=== PATIENT | female | born 1950 | race Caucasian/White ===

== ENCOUNTER → 2017-02-28 | Outpatient (CLI) | payer MEDICARE ==
--- NOTE | 2017-02-28 14:16 | MM ---
Reason for exam: screening (asymptomatic). Baseline mammogram. History: Patient is postmenopausal. Physical Findings: Nurse did not find any significant physical abnormalities on exam. MG 3D Screening Mammo W/Cad Bilateral CC and MLO view(s) were taken. There are scattered fibroglandular densities. Right intramammary lymph node with a notch is noted in posterior upper outer quadrant. These results were verbally communicated with the patient and result sheet given to the patient on 02/28/17. ASSESSMENT: Benign, BI-RAD 2 RECOMMENDATION: Routine screening mammogram of both breasts in 1 year.
== END | disposition home or self-care (01) ==
LOC: RADMAMWWP 13:30
PROVIDERS: ATTEND Family Medicine
DX: Z12.31 Encounter for screening mammogram for malignant neoplasm of breast (principal)
CPT/HCPCS: 77063; 77067

== ENCOUNTER 2018-05-30 08:10 | Inpatient (IN) | payer MEDICARE ==
[2018-05-30] MEDS ORDERED: SODIUM CHLORIDE 0.9% 1,000 ML IV STA (08:23)
[2018-05-30] MEDS ORDERED: IPRATROPIUM-ALBUTEROL 3 ML NEB INHALATION STA (08:23)
[2018-05-30 08:38] LABS: Basophils # (A) 0.1 k/uL (0-0.2); Basophils % (A) 0 %; Eosinophils # (A) 1.1 k/uL (0-0.7); Eosinophils % (A) 5 %; HCT 37.7 % (34.0-46.0); HGB 12.1 gm/dL (11.4-16.0); Lymphocytes % (A) 5 %; MCH 29.7 pg (25.0-35.0); MCHC 32.1 g/dL (31.0-37.0); MCV 92.6 fL (80.0-100.0); Mean Platelet Volume 6.8; Monocytes # (A) 0.4 k/uL (0-1.0); Monocytes % (A) 2 %; Neutrophils # (A) 18.4 k/uL (1.3-7.7); Neutrophils % (A) 88 %; Platelet Count 374 k/uL (150-450); RBC 4.07 m/uL (3.80-5.40); RDW 12.3 % (11.5-15.5)
[2018-05-30] MEDS ORDERED: cefTRIAXone IN SWFI 1,000 MG/10 ML SYRINGE IVP STA (08:42)
--- NOTE | 2018-05-30 08:44 | ED ---
Chest Pain HPI <John Lopez - Last Filed: 05/30/18 09:18> - General Source: patient, family, RN notes reviewed, old records reviewed Mode of arrival: wheelchair Limitations: no limitations <Meghan Suarez - Last Filed: 05/30/18 10:43> - General Chief Complaint: Chest Pain Stated Complaint: Chest pain Time Seen by Provider: 05/30/18 08:17 - History of Present Illness Initial Comments: Patient is a 68-year-old female, history of smoking presents emergency department today with significant chest pain and shortness of breath. Patient reports that she has had low-grade fever yesterday. Patient reports she's had increased coughing. She complains today of significant chest pain and pain radi ating towards her abdomen. She states it felt like she had have a bowel movement today. Patient has a history of throat cancer. She is not currently on any radiation or chemotherapy treatments. Patient reports that she was walking in her yard to get some help and went to her neighbor's. Her neighbor dropped her off and carried her into the emergency department. (Meghan Suarez) - Related Data Home Medications Medication Instructions Recorded Confirmed HYDROcodone/APAP 10-325MG [Canby 1 tab PO Q8H 05/30/18 05/30/18 10-325] Meloxicam [Mobic] 15 mg PO DAILY 05/30/18 05/30/18 QUEtiapine FUMARATE [SEROquel] 25 mg PO HS 05/30/18 05/30/18 Allergies Allergy/AdvReac Type Severity Reaction Status Date / Time Penicillins Allergy Rash/Hives Verified 05/30/18 08:14 Review of Systems ROS Other: All systems not noted in ROS Statement are negative. <John Lopez - Last Filed: 05/30/18 09:18> ROS Other: All systems not noted in ROS Statement are negative. <Meghan Suarez - Last Filed: 05/30/18 10:43> ROS Statement: Those systems with pertinent positive or pertinent negative responses have been documented in the HPI. EKG Findings - EKG Comments: EKG Findings:: EKG performed at 823, sinus rhythm nonspecific ST and milk. Abnormal EKG. Ventricular rate of 91 bpm. IA interval is 134 ms. QRS duration is 72 ms. QT QTc is 332/408 ms. <Meghan Suarez - Last Filed: 05/30/18 10:43> Past Medical History Past Medical History: COPD Additional Past Medical History / Comment(s): throat cancer History of Any Multi-Drug Resistant Organisms: None Reported Past Surgical History: Hysterectomy Past Psychological History: Depression Smoking Status: Current every day smoker Past Alcohol Use History: None Reported Past Drug Use History: None Reported <Meghan Suarez - Last Filed: 05/30/18 10:43> General Exam Limitations: no limitations, altered mental status General appearance: alert, in no apparent distress, anxious Head exam: Present: atraumatic, normocephalic, normal inspection Eye exam: Present: normal appearance, PERRL, EOMI. Absent: scleral icterus, conjunctival injection, periorbital swelling ENT exam: Present: normal exam, mucous membranes moist Neck exam: Present: normal inspection. Absent: tenderness, meningismus, lymphadenopathy Respiratory exam: Present: wheezes, decreased breath sounds. Absent: normal lung sounds bilaterally, respiratory distress, rales, rhonchi, stridor Cardiovascular Exam: Present: regular rate, normal rhythm, normal heart sounds. Absent: systolic murmur, diastolic murmur, rubs, gallop, clicks GI/Abdominal exam: Present: soft, tenderness (Diffuse abdominal tenderness.), normal bowel sounds. Absent: distended, guarding, rebound, rigid Extremities exam: Present: normal inspection, full ROM, normal capillary refill. Absent: tenderness, pedal edema, joint swelling, calf tenderness Back exam: Present: normal inspection Neurological exam: Present: alert, oriented X3, CN II-XII intact Expanded Neurological exam: Present: other (Patient is alert and oriented to person place and time. She does have some confused conversation, states that the right or was there for her cancer diagnosis. This is not accurate.) Patient oriented to: Present: person, place, time Cranial nerves: EOM's Intact: Normal Sensory exam: Upper Extremity Light Touch: Normal, Lower Extremity Light Touch: Normal Motor strength exam: RUE: 5, LUE: 5, RLE: 5, LLE: 5 Eye Response: (4) open spontaneously Motor Response: (6) obeys commands Verbal Response: (4) confused conversation Nacho Total: 14 Psychiatric exam: Present: normal affect, normal mood, anxious Skin exam: Present: warm, dry, intact, normal color. Absent: rash <Meghan Suarez - Last Filed: 05/30/18 10:43> - General Exam Comments Initial Comments: This is a 68-year-old female. Patient is anxious, appears in significant distress. Writhing around in the bed. Somewhat confused conversation. (Meghan Suarez) Course <Meghan Suarez - Last Filed: 05/30/18 10:43> Vital Signs 05/30/18 05/30/18 05/30/18 08:11 08:28 08:36 Temperature 98.5 F Pulse Rate 99 84 84 Respiratory 22 Rate Blood Pressure 191/52 O2 Sat by Pulse 94 L Oximetry 05/30/18 05/30/18 09:16 10:08 Temperature Pulse Rate 87 93 Respiratory 16 16 Rate Blood Pressure 170/75 152/87 O2 Sat by Pulse 98 97 Oximetry - Reevaluation(s) Reevaluation #1: 05/30/18 09:41 Patient was evaluated continues to have symptoms diffuse conversation. Did not recognize her brother and state her brother is her son. Patient's brother admits the Patient is altered. (Meghan Suarez) Chest Pain MDM <John Lopez - Last Filed: 05/30/18 09:18> <Meghan Suarez - Last Filed: 05/30/18 10:43> - MDM IDejan, personally saw and examined the patient. I have reviewed and agree with the PA findings, including all diagnostic interpretations and treatment plans as written unless otherwise stated. I was present for the carbajal portions of any procedures performed and the inclusive time noted for any critical care statement. (John Lopez) Patient is a 68-year-old female presents emergency Department today with complaints of chest pain shortness of breath. She stated that she had pain starting in abdomen and radiating up towards The chest. She arrived to emergency department by her neighbor. She is confused conversation and is altered. History was obtained from patient's brother and [id number] report that she does have history of drug abuse and alcoholism. She is diagnosed with throat cancer but not currently on any chemo or radiation treatments. She arrived to emergency department wheezing and coughing. Patient started on oxygen and IV fluids were initiated blood cultures and cardiac workup obtained. Patient appeared in significant distress and writhing around the bed with confused conversation. Initially was concerned for possibility of dissection. CT thoracic and abdominal aorta was completed. CT report: CT shows no evidence of pulmonary embolus. After her medicine regularly at the distal thoracic and abdominal aorta with areas of ulceration. There is no evidence of dilation or dissection. Emphysema changes within the lungs. Mild cardiomegaly. There is mild consolidation at the left lung base either representing atelectasis or early consolidation. There is a 2.5 cm left adrenal mass. Minimal and comp acute diverticulosis of the sigmoid colon. Degenerative changes noted within the spine. Chest x-ray shows mild changes of congestive heart failure. With CT showing evidence of consolidation left lung base, is concerned for pneumonia and sepsis. The patient's white blood cell count is elevated at 21,000. Lactic acid is negative. She was initiated on Rocephin and Solu- Medrol. Patient was reevaluated again and brother was present. States that she is altered. CT of the brain will be completed at this time. CT brain with residual constrast from ct aorta shows no acute intracranial abnormality. Mild degenerative changes. Chronic right ethmoidal sinus mucosal disease. Patient's case discussed with Dr. Lopez we'll discuss the case with Dr. BUZZ Uriostegui. He agrees to accept admission but states to admit the Patient under Dr. Paredes. (Meghan Suarez) Critical Care Time Critical Care Time: Yes Total Critical Care Time: 35 <Meghan Suarez - Last Filed: 05/30/18 10:43> Disposition <John Lopez - Last Filed: 05/30/18 09:18> Is patient prescribed a controlled substance at d/c from ED?: No Time of Disposition: 09:48 <Meghan Suarez - Last Filed: 05/30/18 10:43> Clinical Impression: Sepsis, Pneumonia, Altered mental status, Transaminitis Disposition: ADMITTED IP TO THIS HOSP Condition: Stable Referrals: Johnson Vanegas MD [Primary Care Provider] - 1-2 days
[2018-05-30 08:46] LABS: ALT 131 U/L (9-52); AST 103 U/L (14-36); Albumin 4.4 g/dL (3.5-5.0); Alkaline Phosphatase 195 U/L (38-126); Anion Gap 9 mmol/L; Blood Urea Nitrogen 13 mg/dL (7-17); Calcium 9.8 mg/dL (8.4-10.2); Carbon Dioxide 22 mmol/L (22-30); Chloride 103 mmol/L (98-107); Glucose 127 mg/dL (74-99); Magnesium 1.8 mg/dL (1.6-2.3); Potassium 4.7 mmol/L (3.5-5.1); Sodium 134 mmol/L (137-145); Total Bilirubin 0.9 mg/dL (0.2-1.3)
[2018-05-30 08:59] LABS: INR 0.9 (<1.2); Partial Thromboplastin Time 22.1 sec (22.0-30.0); Prothrombin Time 9.5 sec (9.0-12.0)
[2018-05-30] MEDS ORDERED: methylPREDNISolone SOD SUCCI 125 MG/2 ML VIAL IV STA (09:14)
--- NOTE | 2018-05-30 09:19 | CT ---
EXAMINATION TYPE: CT angio thor/abd pel aorta DATE OF EXAM: 05/30/2018 COMPARISON: None. HISTORY: Chest pain CT DLP: 824.8 mGycm. Automated Exposure Control for Dose Reduction was Utilized. CONTRAST: CT scan of the thorax, abdomen and pelvis is performed without and with IV Contrast, patient injected with 100 mL of Isovue 370. FINDINGS: There is some scarring in the lung apices. There is emphysematous change with subpleural bl ebs present in the upper lobes bilaterally. There is some coarse interstitial fibrosis. There is some confluent airspace disease in the left lower lobe. This may represent atelectasis or ea rly consolidation. There is no significant axillary or internal mammary adenopathy. There is some shotty mediastinal and right hilar adenopathy. There is no evidence of pulmonary embolus. The aorta is normal in caliber. There is some atheromatous irregularity and a small, 4.7 mm ulcer in the posterior aspect of the descending thoracic aorta. There is no evidence of abdominal aortic aneur ysm. The celiac, SMA and LIOR vessels are patent. Both renal arteries are patent. Heart size is upper limits of normal. There is no pleural or pericardial fluid. There is atheromatous calcification of the coronary arteries. Within the abdomen, the liver, spleen and gallbladder appear unremarkable. The right adrenal gland is unremarkable. There is a 2.5 cm, irregularly enhancing left adrenal mass. Both kidneys demonstrate function and appear morphologically normal. The pancreas is unremarkable. There is no significant retroperitoneal, iliac or inguinal adenopathy. The bladder is unremarkable. The uterus and ovaries are not visualized. There are scattered diverticula within the sigmoid colon. There is no radiographic evidence of divert iculitis. The appendix is not visualized with certainty there is degenerative disc disease, facet art hropathy and hypertrophic spondylosis within the spine. IMPRESSION: 1. THERE IS NO EVIDENCE OF PULMONARY EMBOLUS. 2. ATHEROMATOUS IRREGULARITY OF THE DISTAL THORACIC AND ABDOMINAL AORTA WITH AREAS OF ULCERATION. THE RE IS NO EVIDENCE OF ANEURYSMAL DILATATION OR DISSECTION. 3. EMPHYSEMATOUS CHANGE WITHIN THE LUNGS. 4. MILD CARDIOMEGALY. 5. MILD CONSOLIDATION AT THE LEFT LUNG BASE EITHER REPRESENTING ATELECTASIS OR EARLY CONSOLIDATION. 6. 2.5 CM, LEFT ADRENAL MASS. 7. MINIMAL UNCOMPLICATED DIVERTICULOSIS OF THE SIGMOID COLON. 8. DEGENERATIVE CHANGES WITHIN THE SPINE.
--- NOTE | 2018-05-30 09:20 | XR ---
EXAMINATION TYPE: XR chest 2V DATE OF EXAM: 05/30/2018 HISTORY: Chest Pain. REFERENCE: Previous study dated 11/28/2015. FINDINGS: Heart is mildly enlarged. There is vascular congestion and mild edema. Pleural spaces are c lear. IMPRESSION: MILD CHANGES OF CONGESTIVE HEART FAILURE.
[2018-05-30] MEDS ORDERED: NALOXONE 0.4 MG/ML 1 ML VIAL IV PRN (09:51)
[2018-05-30] MEDS ORDERED: ACETAMINOPHEN TAB 325 MG TAB PO PRN (09:51)
[2018-05-30] MEDS ORDERED: ONDANSETRON 4 MG/2 ML VIAL IVP PRN (09:51)
[2018-05-30] MEDS ORDERED: Acetaminophen-Codeine 300-30mg TAB PO PRN (09:51)
[2018-05-30] MEDS ORDERED: PNEUMONIA PROTOCOL UTILIZED 1 EACH MISC PO PRN (09:54)
[2018-05-30 10:22] LABS: Appearance,Urine Clear (Clear); Bacteria,Urine Rare /hpf; Bilirubin,Urine Negative (Negative); Blood,Urine Negative (Negative); Color,Urine Light Yellow; Glucose,Urine (UA) Negative (Negative); Ketones,Urine Negative (Negative); Leukocyte Esterase,Urine Large (Negative); Mucus,Urine Rare /hpf; Nitrite,Urine Negative (Negative); Protein,Urine Negative (Negative); RBC,Urine 2 /hpf (0-5); Squamous Epithelial Cell,Urine 1 /hpf (0-4); Urobilinogen,Urine <2.0 mg/dL (<2.0); WBC,Urine 71 /hpf (0-5)
[2018-05-30 10:32] LABS: Amphetamine Screen,Urine Not Detected (NotDetected); Barbiturate Screen,Urine Not Detected (NotDetected); Benzodiazepines Screen,Urine Not Detected (NotDetected); Cocaine Screen,Urine Not Detected (NotDetected); Methadone Screen, Urine Not Detected (NotDetected); Opiate Screen,Urine Detected (NotDetected); Oxycodone Screen, Urine Not Detected (NotDetected); Phencyclidine Screen,Urine Not Detected (NotDetected); Tricyclic Antidepressant,Urine Not Detected (NotDetected); Urn Cannabinoid Scrn Not Detected (NotDetected)
[2018-05-30] MEDS: SODIUM CHLORIDE 0.9% 1,000 ML IV SCH ×2 (11:09→21:51)
[2018-05-30] MEDS: AZITHROMYCIN 500 MG TAB PO SCH (11:48)
--- NOTE | 2018-05-30 12:56 | CT ---
EXAMINATION TYPE: CT brain w con DATE OF EXAM: 05/30/2018 COMPARISON: None. HISTORY: Patient appears agitated and has difficulty following directions CT DLP: 1212.4 mGycm Automated exposure control for dose reduction was used. CONTRAST: CT scan of the head is performed with IV Contrast, patient injected with 100 given during aorta exam mL of Isovue 370. FINDINGS: Central structures are midline. There is no evidence of hydrocephalus. No acute focal lesion, mass ef fect or midline shift is seen. I do not see evidence of intracranial blood. There are mild changes of atrophy and chronic white matter ischemic change. There is no abnormal enhancement identified. There is mucoperiosteal thickening involving the right nasal cavity in the anterior ethmoidal air urmila ls on the right. The remainder the paranasal sinuses and mastoids are clear. The bony calvarium is in tact. IMPRESSION: 1. NO ACUTE INTRACRANIAL ABNORMALITY. 2. MILD DEGENERATIVE CHANGE. 3. CHRONIC RIGHT-SIDED ETHMOIDAL SINUS MUCOSAL DISEASE.
[2018-05-30] MEDS: MORPHINE SULFATE 4 MG/ML SYRINGE IV PRN ×2 (13:59→17:54)
--- NOTE | 2018-05-30 15:27 | HP ---
HISTORY AND PHYSICAL Yamilex Reyes is a 68-year-old female who presented to the ED at [facility] with some mental status changes. She apparently had been doing fair when she developed a low-grade fever. She also had been complaining of some chest pain that was starting in her left leg but going all the way up to her chest. She had a previous history of throat cancer and was somewhat confused. Subsequently her neighbor dropped her off and carried her into the emergency department. She is pleasantly confused at this time. She states that there may have been some medication change recently, but she is not clear what. PAST MEDICAL HISTORY: Positive for COPD, history of throat cancer, hysterectomy, depression. SOCIAL HISTORY: Patient is an everyday smoker. She does not drink alcohol excessively. ALLERGIES: PENICILLINS. MEDICATIONS: Her medications prior to admission were: 1. Seroquel. 2. Mobic. 3. Hydrocodone with acetaminophen. REVIEW OF SYSTEMS: Noncontributory. PHYSICAL EXAMINATION: Respiratory rate is 22, pulse rate 93, temperature 99, blood pressure 154/69, O2 saturation on 2 L by nasal cannula 96%. HEENT reveals pupils that are equal. She has some involuntary movement of her neck. Chest reveals scattered rhonchi bilaterally, prolonged exhalation. Cardiovascular system is in S1, S2. Abdomen is soft. There is no edema. CT of the head showed no acute bleed. LABORATORY DATA: White count is 21,000, hemoglobin 12, neutrophils 18,400, eosinophils 1100. Sodium is 134, potassium 4.7, chloride 103, bicarb 22, glucose 127. CT scan of the chest shows evidence of scarring in the lung apices with left lower lobe consolidative changes. IMPRESSION AT THIS TIME: 1. Left lower lobe pneumonia. 2. Metabolic encephalopathy. 3. Chronic obstructive pulmonary disease with asthma with acute exacerbation. Keep the patient on azithromycin and Rocephin. Have ID further evaluate the patient. Keep the patient on aerosolized steroids and add IV steroids if need be. Patient did receive 125 mg in the ED. Depending on how she does, we shall make further changes to her care. MMODL / IJN: [id number] /
--- NOTE | 2018-05-30 19:39 | CONS ---
CONSULTATION DATE OF SERVICE: 05/30/2018. REASON FOR CONSULTATION: Pneumonia and UTI. HISTORY OF PRESENT ILLNESS: The patient is a 68-year-old female who was brought into the ER with chief complaints of increasing shortness of breath and cough, also low-grade fever. Apparently, the patient symptoms have been going on for a few days before presenting to the hospital. The patient denies any headache or URI symptoms. The patient cough has mild to moderate intensity and there is occasional sputum. No hemoptysis. The patient denies any abdominal pain. No diarrhea. No suprapubic or flank pain. Patient with these symptoms, was evaluated by the ER physician. The patient did have a chest x-ray that was mild changes of congestive heart failure. The patient did have a CT of the thoracic aorta. We did treat possibly the left lower lobe pneumonia. The patient did have elevated white count 21,000 and UA was positive. The patient was started on Rocephin with Zithromax and admitted to the hospital. Infectious Disease was consulted for further recommendation regarding antibiotic therapy. REVIEW OF SYSTEMS: Positive points have been mentioned in HPI. Rest of the systems are negative. PAST MEDICAL HISTORY: COPD, history of throat cancer, depression. PAST SURGICAL HISTORY: Hysterectomy. SOCIAL HISTORY: The patient is currently an everyday smoker. No drinking or drug use. FAMILY HISTORY: No pertinent findings noticed. ALLERGIES: PENICILLIN. No history of anaphylaxis. MEDICATION: Medications include the patient is currently on Tylenol, DuoNeb, Zithromax, Pulmicort, Rocephin 1 g daily, Pepcid, heparin, Motrin, Narcan, Zofran and Protonix. PHYSICAL EXAMINATION: Blood pressure 154/88 with a pulse of 76, temperature 98.3. She is 94% on 2 L nasal cannula. General description is an elderly female up in the bed in no distress. No tachypnea or accessory muscles of respiration use. HEENT: Shows no pallor or scleral icterus. Oral mucosal membranes are dry. No pharyngeal erythema or thrush. NECK: Trachea central. No thyromegaly. Lungs: Unlabored breathing with decreased breath sounds in the bases. No wheeze. Heart S1, S2. Regular rate and rhythm. ABDOMEN: Soft. No tenderness. No guarding or rigidity. EXTREMITIES: No edema of the feet. SKIN examination: No rash or mass palpable. Neurologically: Patient is awake, alert, oriented times three. Mood and affect normal. LABS: Hemoglobin is 12.1, white count 21,000, BUN of 13, creatinine 0.78. Liver enzymes mildly elevated. Urine has been positive. DIAGNOSTIC IMPRESSION AND PLAN: Patient admitted to the hospital with difficulty breathing and some mental status changes likely multifactorial in this patient who does have positive left lower lobe pneumonia possibly community acquired, also a component of urinary tract infection. Likely enteric gram-negative pathogen. PLAN: 1. Will try to obtain sputum for Gram stain culture and sensitivity. 2. Rocephin 1 g daily that should provide wide coverage for both pneumonia as well as UTI. 3. We will follow up on the clinical condition and culture to further adjust medication if needed. Thank you for this consultation. We will follow this patient along with you. MMODL / IJN: [id number] /
[2018-05-30] MEDS: BUDESONIDE 0.5 MG/2 ML NEBU INHALATION SCH (21:03)
[2018-05-30] MEDS: HYDROcodone/APAP 10-325MG 1 EACH TAB PO PRN (21:47)
[2018-05-30] MEDS: NICOTINE 14MG/24HR PATCH TRANSDERM SCH (21:54)
[2018-05-30] MEDS: HEPARIN SODIUM,PORCINE 5,000 UNIT/ML 1 ML VIAL SQ SCH (21:54)
[2018-05-30] MEDS: FAMOTIDINE 20 MG/2 ML VIAL IV SCH (21:54)
[2018-05-31] MEDS: HYDROcodone/APAP 10-325MG 1 EACH TAB PO PRN ×4 (03:46→21:06)
[2018-05-31] MEDS: IPRATROPIUM-ALBUTEROL 3 ML NEB INHALATION PRN ×3 (04:37→12:48)
[2018-05-31] MEDS: IBUPROFEN 400 MG TAB PO PRN ×3 (06:45→20:27)
--- NOTE | 2018-05-31 06:59 | XR ---
EXAMINATION TYPE: XR chest 2V DATE OF EXAM: 05/31/2018 HISTORY: pneumonia. REFERENCE: Previous study dated 05/30/2018. FINDINGS: Lung volumes are prominent. The heart is not enlarged. There is vascular congestion and sub tle interstitial change. This has improved slightly. IMPRESSION: 1. COPD. 2. IMPROVING CHANGES OF CONGESTIVE HEART FAILURE.
[2018-05-31] MEDS: BUDESONIDE 0.5 MG/2 ML NEBU INHALATION SCH ×2 (08:09→18:59)
[2018-05-31] MEDS: AZITHROMYCIN 500 MG TAB PO SCH (08:29)
[2018-05-31] MEDS: NICOTINE 14MG/24HR PATCH TRANSDERM SCH (08:30)
[2018-05-31] MEDS: FAMOTIDINE 20 MG/2 ML VIAL IV SCH (08:30)
[2018-05-31] MEDS: HEPARIN SODIUM,PORCINE 5,000 UNIT/ML 1 ML VIAL SQ SCH ×2 (08:30→21:07)
[2018-05-31] MEDS ORDERED: PANTOPRAZOLE 40 MG/10 ML VIAL IV SCH (09:00)
[2018-05-31] MEDS: SODIUM CHLORIDE 0.9% 1,000 ML IV SCH ×2 (10:46→18:05)
[2018-05-31] MEDS: FAMOTIDINE 20 MG TAB PO SCH (21:06)
--- NOTE | 2018-05-31 21:57 | PN ---
PROGRESS NOTE DATE OF SERVICE: 05/31/2018. REASON FOR FOLLOW UP: Community acquired pneumonia and UTI. INTERVAL HISTORY: The patient is afebrile. The patient continues to have a cough bringing up some purulent sputum. No hemoptysis. No chest pain. No abdominal pain. No diarrhea. PHYSICAL EXAMINATION: Blood pressure 168/89 with a pulse of 78, temperature 98.9. She is 97% on room air. General description is an elderly female lying in bed in no distress. Respiratory system: Unlabored breathing with coarse breath sounds in the bases. No wheeze. Heart S1, S2. Regular rate and rhythm. Abdomen soft, no tenderness. LABS: No new labs have been obtained today. Blood cultures negative so far. DIAGNOSTIC IMPRESSION AND PLAN: Patient admitted to the hospital with difficulty breathing. The patient did have a cough bringing up sputum, likely related to the community-acquired pneumonia. Patient currently with a dose of Erythromycin that will continue. Sputum culture has been obtained. Those will be followed and continue supportive care. MMODL / IJN: [id number] /
--- NOTE | 2018-05-31 22:28 | PN ---
PROGRESS NOTE DATE OF SERVICE: 05/31/2018 She has been hemodynamically stable. She is more awake, alert, and more appropriate. On physical examination her blood pressure is 168/89, respiratory rate of 18, pulse rate 78, temperature 98.9, O2 saturation on room air is 97%. HEENT is unremarkable. Chest reveals occasional crackles. Cardiovascular system is S1, S2. Abdomen is soft. There is no edema. Chest x-ray shows improving changes of congestive heart failure. IMPRESSION: 1. Left lower lobe pneumonia. 2. Urinary tract infection. 3. Metabolic encephalopathy. 4. Congestive heart failure. Continue current medications including azithromycin and Rocephin, budesonide, subcu heparin. Fluid status seems optimal at this time. I would not aggressively diurese. Depending on how she does we should make further changes to her care. MMMARLEYL / SHASHANKN: [id number] /
[2018-06-01] MEDS: SODIUM CHLORIDE 0.9% 1,000 ML IV SCH ×3 (01:55→20:41)
[2018-06-01] MEDS: HYDROcodone/APAP 10-325MG 1 EACH TAB PO PRN ×5 (02:59→22:44)
[2018-06-01] MEDS: IBUPROFEN 400 MG TAB PO PRN ×2 (06:48→19:24)
[2018-06-01] MEDS: IPRATROPIUM-ALBUTEROL 3 ML NEB INHALATION PRN ×2 (07:36→11:14)
[2018-06-01] MEDS: BUDESONIDE 0.5 MG/2 ML NEBU INHALATION SCH ×2 (07:36→19:38)
[2018-06-01] MEDS: AZITHROMYCIN 500 MG TAB PO SCH (09:20)
[2018-06-01] MEDS: FAMOTIDINE 20 MG TAB PO SCH (09:20)
[2018-06-01] MEDS: NICOTINE 7MG/24HR PATCH TRANSDERM SCH (09:21)
[2018-06-01] MEDS: HEPARIN SODIUM,PORCINE 5,000 UNIT/ML 1 ML VIAL SQ SCH ×2 (09:21→20:41)
--- NOTE | 2018-06-01 09:40 | PN ---
PROGRESS NOTE Patient was seen on 06/01/2018. She has been hemodynamically stable. She is more awake, alert. She is coughing up phlegm at this time. On physical examination, blood pressure is 140/64, respiratory rate of 16, pulse rate is 60, temperature 98.6, O2 SAT on room air is 95%. HEENT is unremarkable. Chest reveals expiratory wheeze with scattered rhonchi. Cardiovascular system is S1, S2. Abdomen is soft. There is no pedal edema impression at this time is #1 pneumonia, aspiration type #2 metabolic encephalopathy. Recheck labs today. Increase activity level. Continue antibiotics. Follow ID recommendations. Depending on how she does, we should make further changes to her care. MMODL / IJN: [id number] /
[2018-06-01 10:05] LABS: Basophils % (A) 0 %; Eosinophils # (A) 0.4 k/uL (0-0.7); Eosinophils % (A) 3 %; HGB 10.6 gm/dL (11.4-16.0); Lymphocytes # (A) 1.7 k/uL (1.0-4.8); Lymphocytes % (A) 12 %; MCH 29.7 pg (25.0-35.0); MCHC 32.1 g/dL (31.0-37.0); MCV 92.7 fL (80.0-100.0); Mean Platelet Volume 7.1; Monocytes # (A) 0.5 k/uL (0-1.0); Monocytes % (A) 4 %; Neutrophils # (A) 11.2 k/uL (1.3-7.7); Neutrophils % (A) 80 %; Platelet Count 305 k/uL (150-450); RBC 3.56 m/uL (3.80-5.40); RDW 12.7 % (11.5-15.5)
[2018-06-01 10:14] LABS: Albumin 3.8 g/dL (3.5-5.0); Calcium 9.8 mg/dL (8.4-10.2); Potassium 4.2 mmol/L (3.5-5.1); Total Bilirubin 0.5 mg/dL (0.2-1.3); Total Protein 7.1 g/dL (6.3-8.2)
[2018-06-01] MEDS ORDERED: VANCOMYCIN IV PER PHARMACY 1 EACH MISC MISCELLANE PRN (14:36)
--- NOTE | 2018-06-01 16:38 | PN ---
PROGRESS NOTE DATE OF SERVICE: 06/01/2018 REASON FOR FOLLOWUP: Community-acquired pneumonia and UTI. INTERVAL HISTORY: The patient is currently afebrile. The patient is breathing comfortably. The patient denies having any chest pain. She continues to have some cough, bringing up some sputum. No nausea or vomiting. No abdominal pain or diarrhea. PHYSICAL EXAMINATION: Blood pressure 162/74 with a pulse of 80, temperature 98. She is 96% on room air. General description is an elderly female lying in bed in no distress. RESPIRATORY SYSTEM: Unlabored breathing with decreased intensity of breath sounds. No wheeze. HEART: S1, S2. Regular rate and rhythm. ABDOMEN: Soft. No tenderness. LABS: Hemoglobin 10.6, white count 14,000. BUN of 15, creatinine 0.86. Sputum with presumptive Staph aureus and gram-negative bacilli. DIAGNOSTIC IMPRESSION AND PLAN: Patient admitted to hospital with pneumonia, left lower lobe, and this patient's sputum is now showing Staphylococcus aureus and a gram-negative. We will go ahead and switch her antibiotic therapy to cefepime and vancomycin. Discontinue the Rocephin and Zithromax. Monitor her clinical course closely. Continue with supportive care. MMODL / IJN: [id number] /
[2018-06-01] MEDS: VANCOMYCIN 750 MG in SODIUM CHLORIDE 0.9% 250 ML IVPB SCH ×2 (16:41→22:44)
[2018-06-01] MEDS: CEFEPIME 2 GM in SODIUM CHLORIDE 0.9% 100 ML IVPB SCH (20:41)
[2018-06-02] MEDS: HYDROcodone/APAP 10-325MG 1 EACH TAB PO PRN ×3 (04:20→16:43)
[2018-06-02] MEDS: IPRATROPIUM-ALBUTEROL 3 ML NEB INHALATION PRN ×2 (07:32→11:12)
[2018-06-02] MEDS: BUDESONIDE 0.5 MG/2 ML NEBU INHALATION SCH ×2 (07:32→19:39)
[2018-06-02] MEDS: HEPARIN SODIUM,PORCINE 5,000 UNIT/ML 1 ML VIAL SQ SCH ×2 (08:45→21:09)
[2018-06-02] MEDS: NICOTINE 7MG/24HR PATCH TRANSDERM SCH (08:45)
[2018-06-02] MEDS: SODIUM CHLORIDE 0.9% 1,000 ML IV SCH ×2 (08:46→20:12)
[2018-06-02] MEDS: FAMOTIDINE 20 MG TAB PO SCH (10:30)
[2018-06-02] MEDS: CEFEPIME 2 GM in SODIUM CHLORIDE 0.9% 100 ML IVPB SCH ×2 (10:30→21:07)
[2018-06-02 10:55] LABS: Anion Gap 5 mmol/L; Blood Urea Nitrogen 17 mg/dL (7-17); Calcium 9.5 mg/dL (8.4-10.2); Carbon Dioxide 26 mmol/L (22-30); Chloride 106 mmol/L (98-107); Glucose 79 mg/dL (74-99); Potassium 4.6 mmol/L (3.5-5.1); Sodium 137 mmol/L (137-145)
--- NOTE | 2018-06-02 11:13 | CDI ---
Documentation Clarification Form Date: 06/02/2018 11:02:10 AM From: Alejandra Willett CCS, CCDS Admit Date: 05/30/2018 10:38:00 AM Patient Name: Yamilex Reyes Visit Number: [id number] Discharge Date: ATTENTION: The Clinical Documentation Specialists (CDI) and [facility] Coding Staff appreciate your assistance in clarifying documentation. Please respond to the clarification below the line at the bottom and electronically sign. The CDI & [facility] Coding staff will review the response and follow-up if needed. Please note: Queries are made part of the Legal Health Record. If you have any questions, please contact the author of this message via ITS. Dr. Prince Uriostegui: CHF is documented in the 05/31 progress note: "Congestive heart failure. ... " I would not aggressively diurese." History/Risk Factors: COPD, Current smoker. Throat CA Clinical Indicators: Presented with chest pain, SOB & cough. Diagnosed with Sepsis, Severe with metabolic encephalopathy, aspiration pneumonia, positive sputum cultures with MRSA & E Coli. VS: T 98.5, P 99 - 84, R 22 (SOB), BP 191/52, PO 94 RA (2Lnc) BNP: 805 Echocardiogram Results: n/a on current or on previous admission. Chest X Ray 05/30 Mild CHF. 05/31 CXR: COPD, Improving changes of CHF. Treatment: Albuterol INH, O2 2Lnc, IV fluid bolus, IV Rocephin, IV Solumedrol, IV Ms, IV Zofran, IV fluid rate 100, IV Pepcid, Heparin sq, Nicotine patch, IV Vancomycin, IV Cefepime. No aggressive diuresis per progress note. In your professional opinion, can you please clarify the acuity and type of CHF if known? Systolic Heart Failure: o Acute o Chronic o Acute on Chronic Diastolic Heart Failure: o Acute o Chronic o Acute on Chronic Systolic & Diastolic Heart Failure: o Acute o Chronic o Acute on Chronic Heart Failure Unable to Determine Other, please specify (Last Revision: May 2017) MTDD
[2018-06-02] MEDS: IPRATROPIUM-ALBUTEROL 3 ML NEB INHALATION SCH ×3 (12:57→19:40)
[2018-06-02] MEDS: IBUPROFEN 400 MG TAB PO PRN (13:32)
--- NOTE | 2018-06-02 14:20 | P.PN ---
Subjective Progress Note Date: 06/02/18 This is a 68-year-old female admitted with sepsis secondary to left lower lobe pneumonia, cultures growing MRSA and E. coli. Congested, wheezing, productive cough, yellow sputum. Sputum culture reporting E. coli, MRSA. Evaluated by infectious disease, antibiotics adjusted .Maintained on vancomycin and cefepime. Maintaining O2 sats in high 90s on room air. Afebrile. Evaluated by PT, subacute rehab recommended. Telemetry sinus bradycardia to sinus rhythm. Objective - Vital Signs Vital signs: Vital Signs Temp 98.8 F 06/02/18 03:39 Pulse 86 06/02/18 11:23 Resp 20 06/02/18 03:39 BP 145/82 06/02/18 03:39 Pulse Ox 98 06/02/18 03:39 Intake & Output 06/01/18 06/02/18 06/02/18 18:59 06:59 18:59 Intake Total 582 180 Output Total 700 Balance -118 180 Weight 48.4 kg Intake: Oral 582 180 Output: Urine 700 Other: # Voids 1 - Exam PHYSICAL EXAM: VITAL SIGNS: As above GENERAL: Lying in bed, no acute distress, weak appearing HEENT: Conjunctivae normal. eyes normal. NECK: No JVD. No thyroid enlargement. No LNs CARDIOVASCULAR: S1, S2 muffled. No murmur. RESPIRATION: Breath sounds diminished in the bases. Bilateral expiratory wheezing.No rhonchi or crackles. ABDOMEN: Soft, nontender. No guarding. no masses palpable. No ascites.Bowel sounds heard. LEGS: No edema. no swelling. PSYCHIATRY: Alert and oriented -3, mood and affect normal. NERVOUS SYSTEM: Cranial N 2-12 grossly normal. Moves all 4 limbs. Diffuse weakness No focal deficits. Skin: no ulcer no rash Joints: No active swelling. No inflammation. Lymphatic system. No LN neck axilla or groin. - Labs CBC & Chem 7: 06/01/18 09:38 06/02/18 10:19 Labs: Microbiology - Last 24 Hours (Table) 05/30/18 08:20 Blood Culture - Preliminary Blood No Growth after 72 hours 05/31/18 04:42 Gram Stain - Final Sputum Sputum Culture - Final Methicillin resist S. aureus Escherichia coli Assessment and Plan Assessment: -Left lower lobe community-acquired pneumonia, with MRSA,E-coli. -Possible acute UTI -COPD, possible acute exacerbation -Ongoing nicotine abuse -History of throat cancer -History of depression Plan: Continue on current medication regime ,monitoring and symptomatic treatment. Maintain IV antibiotics as per infectious disease. Nebulized bronchodilators scheduled in addition to prn. Social work consulted for potential subacute rehab. Further recommendations to follow. The impression and plan of care has been dictated as directed. : I performed a history and examination of this patient, discussed the same with the dictator. I agree with the dictator's note ,documented as a scribe. Any additional findings or plans will be noted.
[2018-06-02] MEDS: VANCOMYCIN 750 MG in SODIUM CHLORIDE 0.9% 250 ML IVPB SCH ×2 (15:28→22:58)
[2018-06-02] MEDS: MORPHINE SULFATE 4 MG/ML SYRINGE IV PRN (15:37)
--- NOTE | 2018-06-02 16:42 | PN ---
PROGRESS NOTE DATE OF SERVICE: 06/02/2018. REASON FOR FOLLOWUP: MRSA pneumonia. INTERVAL HISTORY: The patient is currently afebrile. The patient is breathing comfortably. The patient has been complaining of coughing, bilateral sputum production. No nausea, vomiting. No abdominal pain. No diarrhea. PHYSICAL EXAMINATION: Blood pressure 187/86, pulse of 71, temp is 97.2, she is 97% on room air. General description is an elderly female up in the bed in no distress. Respiratory system: Unlabored breathing with decreased breath sounds in the bases. Heart S1, S2. Regular rate and rhythm. ABDOMEN: Soft. No tenderness. LABS: Creatinine 0.75, [place] [address]. Sputum with MRSA and E coli. DIAGNOSTIC IMPRESSION AND PLAN: Patient admitted to the hospital with pneumonia and left lower lobe sputum not showing a E coli MRSA. The patient is currently covered with vancomycin, cefepime to continue. Repeat chest x-ray tomorrow. Continue supportive care. MMODL / IJN: [id number] /
[2018-06-03] MEDS: HYDROcodone/APAP 10-325MG 1 EACH TAB PO PRN ×4 (00:52→23:10)
[2018-06-03] MEDS: LORazepam 2 MG/ML INJ IV PRN (00:53)
[2018-06-03] MEDS: SODIUM CHLORIDE 0.9% 1,000 ML IV SCH ×2 (06:56→16:17)
[2018-06-03] MEDS: BUDESONIDE 0.5 MG/2 ML NEBU INHALATION SCH ×2 (08:12→20:06)
[2018-06-03] MEDS: IPRATROPIUM-ALBUTEROL 3 ML NEB INHALATION SCH ×4 (08:12→20:06)
[2018-06-03] MEDS: NICOTINE 7MG/24HR PATCH TRANSDERM SCH (09:39)
[2018-06-03] MEDS: FAMOTIDINE 20 MG TAB PO SCH (09:40)
[2018-06-03] MEDS: CEFEPIME 2 GM in SODIUM CHLORIDE 0.9% 100 ML IVPB SCH (09:40)
[2018-06-03 09:41] LABS: Basophils % (A) 1 %; Eosinophils # (A) 0.6 k/uL (0-0.7); Eosinophils % (A) 8 %; HCT 30.2 % (34.0-46.0); HGB 9.8 gm/dL (11.4-16.0); Lymphocytes # (A) 1.7 k/uL (1.0-4.8); Lymphocytes % (A) 21 %; MCH 30.4 pg (25.0-35.0); MCHC 32.5 g/dL (31.0-37.0); MCV 93.3 fL (80.0-100.0); Mean Platelet Volume 7.3; Monocytes # (A) 0.5 k/uL (0-1.0); Monocytes % (A) 6 %; Neutrophils % (A) 63 %; Platelet Count 345 k/uL (150-450); RBC 3.23 m/uL (3.80-5.40); RDW 12.6 % (11.5-15.5)
[2018-06-03] MEDS: HEPARIN SODIUM,PORCINE 5,000 UNIT/ML 1 ML VIAL SQ SCH ×2 (09:41→20:58)
[2018-06-03 09:43] LABS: Anion Gap 6 mmol/L; Blood Urea Nitrogen 15 mg/dL (7-17); Calcium 9.4 mg/dL (8.4-10.2); Carbon Dioxide 23 mmol/L (22-30); Chloride 108 mmol/L (98-107); Glucose 123 mg/dL (74-99); Potassium 4.4 mmol/L (3.5-5.1); Sodium 137 mmol/L (137-145)
[2018-06-03] MEDS ORDERED: VANCOMYCIN TROUGH DUE 1 EACH MISC MISCELLANE ONE (10:00)
[2018-06-03] MEDS: VANCOMYCIN 1,000 MG in SODIUM CHLORIDE 0.9% 250 ML IVPB SCH (12:32)
[2018-06-03] MEDS: IBUPROFEN 400 MG TAB PO PRN (15:00)
--- NOTE | 2018-06-03 15:47 | XR ---
EXAMINATION TYPE: XR chest 2V DATE OF EXAM: 06/03/2018 COMPARISON: 05/31/2018 INDICATION: Pneumonia TECHNIQUE: Frontal and lateral views of the chest are obtained. FINDINGS: The heart size is normal. The pulmonary vasculature is normal. There is some subtle increasing lung markings at the left lower lobe. Correlate for left lower lobe p neumonia.. IMPRESSION: 1. Clinical correlation recommended for developing left lower lobe pneumonia
[2018-06-03] MEDS: MORPHINE SULFATE 4 MG/ML SYRINGE IV PRN ×2 (16:27→20:58)
--- NOTE | 2018-06-03 17:49 | PN ---
PROGRESS NOTE DATE OF SERVICE: 06/03/2018. REASON FOR FOLLOWUP: MRSA pneumonia. INTERVAL HISTORY: The patient is currently afebrile. She is breathing comfortably. The patient continues to have congested cough and bringing up some sputum. No nausea, no vomiting. No abdominal pain. No diarrhea. PHYSICAL EXAMINATION: Blood pressure 195/84 with a pulse of 77, temperature 98.3. She is 94% on room air. General description is an elderly female lying in bed in no distress. Respiratory system: Unlabored breathing. Decreased breath sounds at the bases. No wheeze. Heart S1, S2. Regular rate and rhythm. Abdomen soft. No tenderness. LABS: Hemoglobin 9.8, white count 8.0 with a BUN of 15, creatinine 0.73. DIAGNOSTIC IMPRESSION AND PLAN: Patient with MRSA pneumonia. The patient white count has improved. We will obtain a chest x-ray for followup on her pneumonia. Continue with vancomycin with the discharge antibiotic can be either oral Zyvox or a PICC line for IV vancomycin in outpatient setting and this will be discussed further with the telephonic nurse case manager. For the E coli, Rocephin will be added and we will discontinue cefepime. Continue to monitor the clinical course closely. MMODL / IJN: [id number] /
--- NOTE | 2018-06-03 17:58 | P.PN ---
Subjective Progress Note Date: 06/03/18 This is a 68-year-old female admitted with sepsis secondary to left lower lobe pneumonia, cultures growing MRSA and E. coli. Congested, wheezing, productive cough, yellow sputum. Sputum culture reporting E. coli, MRSA. Evaluated by infectious disease, antibiotics adjusted .Maintained on vancomycin and cefepime. Maintaining O2 sats in high 90s on room air. Afebrile. Evaluated by PT, subacute rehab recommended. Telemetry sinus bradycardia to sinus rhythm. 06/03/2018 evaluated by PT/OT, recommending subacute rehab. Patient currently declining. Ambulating in room. Feels better today. Breathing slowly improving. Maintain on IV antibiotics as per infectious disease. Anxiety, restless leg syndrome significantly improved with Requip and Ativan added to med regime yesterday. Afebrile, normal WBC. Objective - Vital Signs Vital signs: Vital Signs Temp 98.3 F 06/03/18 16:30 Pulse 82 06/03/18 16:45 Resp 18 06/03/18 16:30 BP 162/70 06/03/18 16:30 Pulse Ox 99 06/03/18 16:30 Intake & Output 06/02/18 06/03/18 06/03/18 18:59 06:59 18:59 Intake Total 560 720 Output Total 800 800 700 Balance -240 -800 20 Weight 51.8 kg Intake: Oral 560 720 Output: Urine 800 800 700 Other: Voiding Method Toilet # Voids 2 - Exam PHYSICAL EXAM: VITAL SIGNS: As above GENERAL: Lying in bed, no acute distress HEENT: Conjunctivae normal. eyes normal. Oral mucosa moist NECK: No JVD. No thyroid enlargement. No LNs CARDIOVASCULAR: S1, S2 muffled. No murmur. RESPIRATION: Breath sounds diminished in the bases. Improving Bilateral exp iratory wheezing.No rhonchi or crackles. ABDOMEN: Soft, nontender. No guarding. no masses palpable. No ascites.Bowel sounds heard. LEGS: No edema. no swelling. PSYCHIATRY: Alert and oriented -3, mood and affect normal. NERVOUS SYSTEM: Cranial N 2-12 grossly normal. Moves all 4 limbs. Diffuse w eakness No focal deficits. Skin: no ulcer no rash - Labs CBC & Chem 7: 06/03/18 09:19 06/03/18 09:19 Labs: Abnormal Lab Results - Last 24 Hours (Table) 06/03/18 06/03/18 Range/Units 09:19 09:19 RBC 3.23 L (3.80-5.40) m/uL Hgb 9.8 L (11.4-16.0) gm/dL Hct 30.2 L (34.0-46.0) % Chloride 108 H (98-107) mmol/L Glucose 123 H (74-99) mg/dL Microbiology - Last 24 Hours (Table) 05/30/18 08:20 Blood Culture - Preliminary Blood No Growth after 96 hours Assessment and Plan Assessment: -Left lower lobe community-acquired pneumonia, with MRSA,E-coli. -Possible acute UTI -COPD, possible acute exacerbation -Ongoing nicotine abuse -History of throat cancer -History of depression -Restless leg syndrome -Anxiety Plan: Continue on current medication regime ,monitoring and symptomatic treatment. PT/OT, continue increasing ambulation as tolerated .patient currently declining subacute rehab .Maintain nebulized bronchodilators .continue IV antibiotics as per infectious disease. Further recommendations to follow. The impression and plan of care has been dictated as directed. : I performed a history and examination of this patient, discussed the same with the dictator. I agree with the dictator's note ,documented as a scribe. Any additional findings or plans will be noted.
[2018-06-04] MEDS: VANCOMYCIN 1,000 MG in SODIUM CHLORIDE 0.9% 250 ML IVPB SCH ×3 (01:44→23:30)
[2018-06-04] MEDS: SODIUM CHLORIDE 0.9% 1,000 ML IV SCH ×3 (05:25→20:08)
[2018-06-04] MEDS: BUDESONIDE 0.5 MG/2 ML NEBU INHALATION SCH ×2 (08:08→20:22)
[2018-06-04] MEDS: IPRATROPIUM-ALBUTEROL 3 ML NEB INHALATION SCH ×4 (08:08→20:22)
[2018-06-04] MEDS: NICOTINE 7MG/24HR PATCH TRANSDERM SCH (08:19)
[2018-06-04] MEDS: HEPARIN SODIUM,PORCINE 5,000 UNIT/ML 1 ML VIAL SQ SCH ×2 (08:20→20:07)
[2018-06-04] MEDS: FAMOTIDINE 20 MG TAB PO SCH (08:20)
[2018-06-04] MEDS: HYDROcodone/APAP 10-325MG 1 EACH TAB PO PRN ×3 (08:20→23:28)
[2018-06-04] MEDS: IBUPROFEN 400 MG TAB PO PRN ×2 (10:45→18:11)
[2018-06-04] MEDS: LORazepam 2 MG/ML INJ IV PRN (11:24)
--- NOTE | 2018-06-04 17:50 | PN ---
PROGRESS NOTE DATE OF SERVICE: 06/04/2018. REASON FOR FOLLOWUP: MRSA pneumonia. INTERVAL HISTORY: The patient is currently afebrile. The patient is feeling better. Breathing more comfortably. Denies any chest pain. Cough decreased in intensity. No nausea or vomiting. No abdominal pain. No diarrhea. PHYSICAL EXAMINATION: Blood pressure 148/74 with a pulse of 74, temperature 98.4. She is 95% on room air. GENERAL DESCRIPTION is an elderly female up in the bed in no distress. Respiratory system: Unlabored breathing. Decreased breath sounds at the bases. No wheeze. Heart S1, S2. Regular rate and rhythm. Abdomen soft, no tenderness. LABS: Hemoglobin 9.1, white count 8.0, BUN of 15, creatinine 0.73. DIAGNOSTIC IMPRESSION AND PLAN: Patient with MRSA pneumonia, patient currently covered with vancomycin and Levaquin with E coli present in the sputum as well. Plan will be for either oral Zyvox twice a day for 10 days oral Ceftin or IV vancomycin. This was discussed with the nurse practitioner for the admitting team for the discharge antibiotics. Continue supportive care. MMODL / IJN: [id number] /
--- NOTE | 2018-06-04 18:41 | P.PN ---
Subjective Progress Note Date: 06/04/18 This is a 68-year-old female admitted with sepsis secondary to left lower lobe pneumonia, cultures growing MRSA and E. coli. Congested, wheezing, productive cough, yellow sputum. Sputum culture reporting E. coli, MRSA. Evaluated by infectious disease, antibiotics adjusted .Maintained on vancomycin and cefepime. Maintaining O2 sats in high 90s on room air. Afebrile. Evaluated by PT, subacute rehab recommended. Telemetry sinus bradycardia to sinus rhythm. 06/03/2018 evaluated by PT/OT, recommending subacute rehab. Patient currently declining. Ambulating in room. Feels better today. Breathing slowly improving. Maintain on IV antibiotics as per infectious disease. Anxiety, restless leg syndrome significantly improved with Requip and Ativan added to med regime yesterday. Afebrile, normal WBC. 06/04/2018 ambulating in room, feels stronger. Breathing and cough improving. Compliant with incentive spirometer, performing without encouragement. Afebrile. Maintaining on IV antibiotics of vancomycin, Levaquin as per infectious disease. No nausea vomiting or diarrhea. No abdominal pain. Denies chest pain, palpitations or increasing shortness of breath. Anxiety/restless leg syndrome significantly improved. Objective - Vital Signs Vital signs: Vital Signs Temp 98.7 F 06/04/18 15:00 Pulse 72 06/04/18 15:51 Resp 20 06/04/18 15:00 BP 187/81 06/04/18 15:00 Pulse Ox 97 06/04/18 15:00 Intake & Output 06/03/18 06/04/18 06/04/18 18:59 06:59 18:59 Intake Total 942 600 430 Output Total 700 1000 Balance 242 -400 430 Weight 51.7 kg Intake: IV 600 Sodium Chloride 0.9% 1, 600 000 ml @ 100 mls/hr IV . Q10H [facility] Rx#:[id number] Oral 942 430 Output: Urine 700 1000 Other: Voiding Method Toilet Bedside Commode # Voids 2 - Exam PHYSICAL EXAM: VITAL SIGNS: As above GENERAL: Sitting up at side of bed, no acute distress HEENT: Conjunctivae normal. eyes normal. Oral mucosa moist NECK: No JVD. No thyroid enlargement. No LNs CARDIOVASCULAR: S1, S2 muffled. No murmur. RESPIRATION: Unlabored Breath sounds diminished in the bases. No wheezing, No rhonchi or crackles. ABDOMEN: Soft, nontender. No guarding. no masses palpable. Bowel sounds heard. LEGS: No edema. no swelling. PSYCHIATRY: Alert and oriented -3, mood and affect normal. NERVOUS SYSTEM: Cranial N 2-12 grossly normal. Moves all 4 limbs. Diffuse weakness No focal deficits. Skin: no lesions, no rash Microbiology 05/30/18 08:20 Blood Blood Culture - Preliminary No Growth after 120 hours 05/31/18 04:42 Sputum Gram Stain - Final 05/31/18 04:42 Sputum Sputum Culture - Final Methicillin resist S. aureus Escherichia coli - Labs CBC & Chem 7: 06/03/18 09:19 06/03/18 09:19 Labs: Microbiology - Last 24 Hours (Table) 05/30/18 08:20 Blood Culture - Preliminary Blood No Growth after 120 hours Assessment and Plan Assessment: -Left lower lobe community-acquired pneumonia, with MRSA,E-coli. -Possible acute UTI -COPD, possible acute exacerbation -Ongoing nicotine abuse -History of throat cancer -History of depression -Restless leg syndrome -Anxiety Plan: Continue on current medication regime ,monitoring and symptomatic treatment. Discharge planning in progress for tomorrow. He should to be discharged home on Zyvox. Case management confirmed Zyvox coverage. Aggressive pulmonary toileting. Further recommendations to follow. The impression and plan of care has been dictated as directed. : I performed a history and examination of this patient, discussed the same with the dictator. I agree with the dictator's note ,documented as a scribe. Any additional findings or plans will be noted.
[2018-06-04] MEDS: MORPHINE SULFATE 4 MG/ML SYRINGE IV PRN (20:08)
[2018-06-05 06:08] VITALS: TEMP 97.8
[2018-06-05] MEDS: SODIUM CHLORIDE 0.9% 1,000 ML IV SCH (06:38)
[2018-06-05] MEDS: HYDROcodone/APAP 10-325MG 1 EACH TAB PO PRN ×2 (06:52→12:12)
[2018-06-05 07:46] LABS: Anion Gap 5 mmol/L; Blood Urea Nitrogen 13 mg/dL (7-17); Calcium 9.7 mg/dL (8.4-10.2); Carbon Dioxide 26 mmol/L (22-30); Chloride 108 mmol/L (98-107); Glucose 84 mg/dL (74-99); Potassium 5.5 mmol/L (3.5-5.1); Sodium 139 mmol/L (137-145)
[2018-06-05] MEDS: FAMOTIDINE 20 MG TAB PO SCH (08:06)
[2018-06-05] MEDS: NICOTINE 7MG/24HR PATCH TRANSDERM SCH (08:06)
[2018-06-05] MEDS: HEPARIN SODIUM,PORCINE 5,000 UNIT/ML 1 ML VIAL SQ SCH (08:07)
[2018-06-05] MEDS: IPRATROPIUM-ALBUTEROL 3 ML NEB INHALATION SCH ×3 (08:21→15:42)
[2018-06-05] MEDS: BUDESONIDE 0.5 MG/2 ML NEBU INHALATION SCH (08:21)
[2018-06-05 08:25] VITALS: RESP 16
[2018-06-05] MEDS ORDERED: VANCOMYCIN TROUGH DUE 1 EACH MISC MISCELLANE ONE (10:00)
[2018-06-05] MEDS: IBUPROFEN 400 MG TAB PO PRN (11:01)
[2018-06-05] MEDS: VANCOMYCIN 1,000 MG in SODIUM CHLORIDE 0.9% 250 ML IVPB SCH (11:01)
[2018-06-05 13:00] VITALS: BMI 21.7
[2018-06-05 13:42] VITALS: BP 135/90; PULSE 93
--- NOTE | 2018-06-05 15:57 | PN ---
PROGRESS NOTE DATE OF SERVICE: 06/05/2018 REASON FOR FOLLOWUP: MRSA pneumonia. INTERVAL HISTORY: The patient is currently afebrile. The patient is breathing more comfortably. Cough has decreased in intensity. No chest pain. No nausea, vomiting. No abdominal pain. No diarrhea. PHYSICAL EXAMINATION: Blood pressure 135/90 with a pulse of 93, temperature 98. She is 100% on room air. General description is an elderly female up in the bed in no distress. RESPIRATORY SYSTEM: Unlabored breathing with decreased intensity of breath sounds. No wheeze. HEART: S1, S2. Regular rate and rhythm. ABDOMEN: Soft. No tenderness. LABS: BUN and creatinine are normal. DIAGNOSTIC IMPRESSION AND PLAN: Patient with methicillin-resistant Staphylococcus aeruginosa pneumonia Escherichia coli. Plan is for 10 more days of oral Ceftin and Zyvox and close outpatient followup. MARYL / SHASHANKN: [id number] /
--- NOTE | 2018-06-05 17:04 | P.DS ---
Providers Date of admission: 05/30/18 10:38 Expected date of discharge: 06/05/18 Attending physician: Johnson Vanegas Consults: 05/30/18 13:22 Consult Physician Routine Consulting Provider: Ortega Moore Consult Reason/Comments: infection Do you want consulting provider notified?: Yes [facility] Course: Final Diagnoses: -Left lower lobe community-acquired pneumonia, with MRSA,E-coli. -Possible acute UTI -COPD, possible acute exacerbation -Ongoing nicotine abuse -History of throat cancer -History of depression -Restless leg syndrome -Anxiety Hospital course:This is a 68-year-old female admitted with sepsis secondary to left lower lobe pneumonia, cultures growing MRSA and E. coli. Congested, wheezing, productive cough, yellow sputum. Sputum culture reporting E. coli, MRSA. Evaluated by infectious disease, antibiotics adjusted .Maintained on vancomycin and cefepime. Maintaining O2 sats in high 90s on room air. Afebrile. Evaluated by PT, subacute rehab recommended. Telemetry sinus bradycardia to sinus rhythm. 06/03/2018 evaluated by PT/OT, recommending subacute rehab. Patient currently declining. Ambulating in room. Feels better today. Breathing slowly improving. Maintain on IV antibiotics as per infectious disease. Anxiety, restless leg syndrome significantly improved with Requip and Ativan added to med regime yesterday. Afebrile, normal WBC. 06/04/2018 ambulating in room, feels stronger. Breathing and cough improving. Compliant with incentive spirometer, performing without encouragement. Afeb rile. Maintaining on IV antibiotics of vancomycin, Levaquin as per infectious disease. No nausea vomiting or diarrhea. No abdominal pain. Denies chest pain, palpitations or increasing shortness of breath. Anxiety/restless leg syndrome significantly improved. 06/05/2018 significant clinical improvement. Cleared by pulmonary for discharge. Patient is being discharged home in a stable condition with guarded prognosis. EXAM: GENERAL: alert and oriented x 3, no acute distress HEENT: Conjunctivae normal. eyes normal. Oral mucosa moist CARDIOVASCULAR: S1, S2 muffled. No murmur. RESPIRATION: Unlabored Breath sounds diminished in the bases. No wheezing, No rhonchi or crackles. ABDOMEN: Soft, nontender. No guarding. no masses palpable. Bowel sounds heard. NERVOUS SYSTEM: No focal deficits. The impression and plan of care has been dictated as directed. : I performed a history and examination of this patient, discussed the same with the dictator. I agree with the dictator's note ,documented as a scribe. Any additional findings or plans will be noted. Time taken: 35 minutes Patient Condition at Discharge: Stable Plan - Discharge Summary New Discharge Prescriptions: New Cefuroxime Axetil [Ceftin] 500 mg PO BID #14 tab Linezolid [Zyvox] 600 mg PO BID #20 tab Nicotine 7Mg/24Hr Patch [Habitrol] 1 patch TRANSDERM DAILY #30 patch rOPINIRole HCL [Requip] 1 mg PO TID #90 tab Albuterol Inhaler [Ventolin Hfa Inhaler] 2 puff INHALATION QID #1 inhaler Pantoprazole [Protonix] 40 mg PO DAILY #15 tablet.dr Boateng QUEtiapine FUMARATE [SEROquel] 25 mg PO HS Meloxicam [Mobic] 15 mg PO DAILY HYDROcodone/APAP 10-325MG [Hancock 10-325] 1 tab PO Q8H Discharge Medication List HYDROcodone/APAP 10-325MG [Hancock 10-325] 1 tab PO Q8H 05/30/18 [History] Meloxicam [Mobic] 15 mg PO DAILY 05/30/18 [History] QUEtiapine FUMARATE [SEROquel] 25 mg PO HS 05/30/18 [History] Albuterol Inhaler [Ventolin Hfa Inhaler] 2 puff INHALATION QID #1 inhaler 06/05/18 [Rx] Cefuroxime Axetil [Ceftin] 500 mg PO BID #14 tab 06/05/18 [Rx] Linezolid [Zyvox] 600 mg PO BID #20 tab 06/05/18 [Rx] Nicotine 7Mg/24Hr Patch [Habitrol] 1 patch TRANSDERM DAILY #30 patch 06/05/18 [Rx] Pantoprazole [Protonix] 40 mg PO DAILY #15 tablet. 06/05/18 [Rx] rOPINIRole HCL [Requip] 1 mg PO TID #90 tab 06/05/18 [Rx] Follow up Appointment(s)/Referral(s): Johnson Vanegas MD [Primary Care Provider] - 06/11/18 9:45 am () Prince Uriostegui MD [STAFF PHYSICIAN] - As Needed (Pulmonology.) Ortega Moore MD [STAFF PHYSICIAN] - 06/15/18 10:45 am (Friday) Ambulatory/Diagnostic Orders: Complete Blood Count w/diff [LAB.AMB] Time Frame: 3 Days, Location: None Selected Patient Instructions/Handouts: Urinary Tract Infection in Women (DC), Community Acquired Pneumonia (DC) Activity/Diet/Wound Care/Special Instructions: [facility] - [phone] Discharge Disposition: HOME WITH HOME HEALTH SERVICES
--- NOTE | 2018-06-08 07:59 | CDI ---
Documentation Clarification Form Date: 06/02/2018 11:02:00 AM From: Alejandra WillettBRAXTON, CCDS Admit Date: 05/30/2018 10:38:00 AM Patient Name: Yamilex Reyes Visit Number: [id number] Discharge Date: 06/05/2018 4:29:00 PM ATTENTION: The Clinical Documentation Specialists (CDI) and [facility] Coding Staff appreciate your assistance in clarifying documentation. Please respond to the clarification below the line at the bottom and electronically sign. The CDI & [facility] Coding staff will review the response and follow-up if needed. Please note: Queries are made part of the Legal Health Record. If you have any questions, please contact the author of this message via ITS. Dr. Johnson Vanegas: CHF is documented in the 05/31 progress note: "Congestive heart failure. ... " I would not aggressively diurese." History/Risk Factors: COPD, Current smoker. Throat CA Clinical Indicators: Presented with chest pain, SOB & cough. Diagnosed with Sepsis, Severe with metabolic encephalopathy, aspiration pneumonia, positive sputum cultures with MRSA & E Coli. VS: T 98.5, P 99 - 84, R 22 (SOB), BP 191/52, PO 94 RA (2Lnc) BNP: 805 Echocardiogram Results: n/a on current or on previous admission. Chest X Ray 05/30 Mild CHF. 05/31 CXR: COPD, Improving changes of CHF. Treatment: Albuterol INH, O2 2Lnc, IV fluid bolus, IV Rocephin, IV Solumedrol, IV Ms, IV Zofran, IV fluid rate 100, IV Pepcid, Heparin sq, Nicotine patch, IV Vancomycin, IV Cefepime. No aggressive diuresis per progress note. In your professional opinion, can you please clarify the acuity and type of CHF if known? Systolic Heart Failure: o Acute o Chronic o Acute on Chronic Diastolic Heart Failure: o Acute o Chronic o Acute on Chronic Systolic & Diastolic Heart Failure: o Acute o Chronic o Acute on Chronic Heart Failure Unable to Determine Other, please specify__we did not call it CHF, Dr. BUZZ herndon did. (Last Revision: May 2017) JOJO
--- NOTE | 2018-06-13 11:34 | DS ---
DISCHARGE SUMMARY ADDENDUM DISCHARGE SUMMARY: Chronic diastolic heart failure. MMODL / IJN: [id number] /
== END 2018-06-05 16:29 | disposition home health service (06) | DRG 871 ==
LOC: EC 08:10 → 3SCARD 10:38
PROVIDERS: ADMIT Family Medicine; ATTEND Family Medicine
DX: A41.02 Sepsis due to Methicillin resistant Staphylococcus aureus (principal); G93.41 Metabolic encephalopathy; J15.212 Pneumonia due to Methicillin resistant Staphylococcus aureus; J44.0 Chronic obstructive pulmonary disease with (acute) lower respiratory infection; N39.0 Urinary tract infection, site not specified; J44.1 Chronic obstructive pulmonary disease with (acute) exacerbation; F32.9 Major depressive disorder, single episode, unspecified; A41.51 Sepsis due to Escherichia coli [E. coli]; F17.200 Nicotine dependence, unspecified, uncomplicated; I50.9 Heart failure, unspecified; F41.9 Anxiety disorder, unspecified; G25.81 Restless legs syndrome; Z90.710 Acquired absence of both cervix and uterus; Z85.819 Personal history of malignant neoplasm of unspecified site of lip, oral cavity, and pharynx; Z79.1 Long term (current) use of non-steroidal anti-inflammatories (NSAID); Z79.899 Other long term (current) drug therapy
CPT/HCPCS: 36415; 70460; 71046; 71275; 74174; 80048; 80053; 80202; 80306; 81001; 82140; 83605; 83735; 83880; 84484; 85025; 85610; 85730; 87040; 87070; 87077; 87186; 87205; 93005; 94640; 94760; 96361; 96374; 96375; 99291

== ENCOUNTER → 2019-12-30 | Outpatient (CLI) | payer MEDICARE ==
--- NOTE | 2019-12-30 14:36 | XR ---
MR spine HISTORY: Trauma and pain 3 views of lumbar spine Comparisons: CT 05/30/2018 FINDINGS: Bone mineralization is reduced. Lumbar vertebral bodies show preserved height. Minimal inte rstitial grade 1 L4-5. Sclerosis present in the posterior elements. There is mild multilevel spondylo sis, mild loss of disc height L3-4, L5-S1. Dense abscess chronic calcifications are present within th e aorta. Suspect there is aortic ectasia in the abdomen. IMPRESSION: Osteopenia, degenerative disc disease, facet arthropathy. Aortic ectasia may be present.
--- NOTE | 2019-12-30 14:53 | XR ---
AP pelvis HISTORY: Trauma and pain Frontal view of the pelvis is submitted and correlated to prior CT 05/30/2018 The marked arthropathy change in the left hip, osteonecrosis changes within the left femoral head are stable. Deformity of the pubic symphysis is also stable finding and may be due to remote trauma. Bon e mineralization is reduced. There are vascular calcifications noted. impression: No fracture or dislocation. Osteonecrosis and osteoarthritis left hip, correlate for hist ory of remote trauma.
== END | disposition home or self-care (01) ==
LOC: RADXRMAIN 13:43
PROVIDERS: ATTEND Family Medicine
DX: M51.36 Other intervertebral disc degeneration, lumbar region (principal); M47.816 Spondylosis without myelopathy or radiculopathy, lumbar region; M85.88 Other specified disorders of bone density and structure, other site; M16.12 Unilateral primary osteoarthritis, left hip; M87.850 Other osteonecrosis, pelvis
CPT/HCPCS: 72100; 72170

== ENCOUNTER → 2020-02-01 | Outpatient (CLI) | payer MEDICARE ==
[2020-02-02 01:18] LABS: Hemoglobin A1C 5.7 % (4.0-6.0)
[2020-02-02 02:41] LABS: T4, Free (Free Thyroxine) 1.4 ng/dL (0.80-1.80)
== END | disposition home or self-care (01) ==
LOC: LABWHC1 15:38
PROVIDERS: ATTEND Psychiatry & Neurology Neurology
DX: G25.5 Other chorea (principal); G62.9 Polyneuropathy, unspecified; M54.30 Sciatica, unspecified side
CPT/HCPCS: 36415; 82550; 82607; 82747; 83036; 84439; 84443; 85652; 86038; 86215; 86618; 86780

== ENCOUNTER → 2020-04-17 | Outpatient (CLI) | payer MEDICARE ==
--- NOTE | 2020-04-17 15:29 | CT ---
EXAMINATION TYPE: CT chest w con DATE OF EXAM: 04/17/2020 COMPARISON: Prior CTA aorta May 30, 2018. Prior PET/CT January 06, 2016. HISTORY: ABNORMAL CT CT DLP: 349 mGycm. Automated Exposure Control for Dose Reduction was Utilized. TECHNIQUE: CT scan of the thorax is performed following with IV Contrast, patient injected with 80 m L of Isovue 300. FINDINGS: LUNGS: Moderate peripheral parenchymal fibrotic change and/or reticulation is seen bilaterally with s ome honeycombing in the bases just above diaphragm redemonstrated. Involvement of the upper lungs als o noted. Relative sparing of the midlungs. Stable 4 to 5 mm subpleural right middle lobe nodule image 37. No new or enlarging greater than 5 mm nodules. Areas of nodular consolidation in the left lower lobe in 2019 show interval resolution. No pleural effusion or pneumothorax. MEDIASTINUM: There are no new greater than 1 cm hilar or mediastinal lymph nodes. Prominent but subc entimeter prevascular lymph nodes again seen. Slightly enlarged pericarinal lymph note axial image 21 is unchanged from prior studies. Stable prominent borderline enlarged right hilar lymph node axial i mage 24 prior study image 42. No cardiomegaly or pericardial effusion is seen. Moderate left atrial enlargement and mild to moderate left ventricular dilatation redemonstrated OTHER: Slight underlying scoliotic curvature. IMPRESSION: No suspicious new or enlarging nodules or thoracic adenopathy. Moderate fibrotic changes throughout both lungs redemonstrated, correlate for possible IPF.
== END ==
LOC: RADCTMAIN 13:34
PROVIDERS: ATTEND Family Medicine
DX: J84.10 Pulmonary fibrosis, unspecified (principal)
CPT/HCPCS: 82565; 84520; 71260; 36415; Q9967

== ENCOUNTER 2023-02-18 16:57 | Emergency (ER) | payer MEDICARE, OTHER ==
--- NOTE | 2023-02-18 17:11 | ED ---
Abdominal Pain HPI - General Stated Complaint: Constipation Time Seen by Provider: 02/18/23 16:59 Source: patient, EMS, RN notes reviewed - History of Present Illness Initial Comments: Patient is 72-year-old female presenting via EMS to emergency department with chief complaint of constipation. Patient reports about 6 weeks ago she had surgery on her ankle and has been taking [place] for pain. Patient also takes [place] daily for arthritis and dislocated hip. Patient reports that she is scheduled to have right hip surgery due to dislocation soon. Patient states she has not had a bowel movement in about a week and a half. Patient denies any flatulence or hemorrhoids. Patient reports that she has been nauseous and vomiting a couple days ago. Denies any current nausea or blood in vomit. Patient reports she is at [facility] for rehab and they have tried enemas, stool softeners and laxatives with no relief. No history of abdominal surgeries. Patient denies any fevers, chills, night sweats, chest pain, s hortness of breath. - Related Data Home Medications Medication Instructions Recorded Confirmed Acetaminophen Tab [Tylenol] 650 mg PO Q6H PRN 02/18/23 02/18/23 Amiodarone [Cordarone] 200 mg PO Q48H 02/18/23 02/18/23 Aspirin EC [Ecotrin Low Dose] 81 mg PO DAILY 02/18/23 02/18/23 Citalopram Hydrobromide [CeleXA] 20 mg PO DAILY 02/18/23 02/18/23 Fluticasone/Vilanterol [Breo 1 puff IN RT-DAILY 02/18/23 02/18/23 Ellipta 100-25 Mcg Inhaler] Gabapentin [Neurontin] 300 mg PO TID 02/18/23 02/18/23 HYDROcodone/APAP 5-325MG [[place] 1 tab PO Q6H PRN 02/18/23 02/18/23 5-325] Ipratropium-Albuterol Nebulize 3 ml INHALATION Q4H PRN 02/18/23 02/18/23 [Duoneb 0.5 mg-3 mg/3 ml Soln] Lactobacillus Acidophilus 1 cap PO BID 02/18/23 02/18/23 [Acidophilus] Lactulose 10 gm PO TID 02/18/23 02/18/23 Magnesium Hydroxide [Milk of 2,400 mg PO DAILY PRN 02/18/23 02/18/23 Magnesia] Metoclopramide [Reglan] 10 mg PO TID 02/18/23 02/18/23 Metoprolol Tartrate [Lopressor] 12.5 mg PO BID 02/18/23 02/18/23 Sennosides [Senokot] 17.2 mg PO BID 02/18/23 02/18/23 Sildenafil Citrate [Sildenafil] 20 mg PO TID 02/18/23 02/18/23 Simethicone [Simethicone Chew] 80 mg PO QID 02/18/23 02/18/23 Sodium Bicarbonate Tab 650 mg PO TID 02/18/23 02/18/23 Sulfamethox-Tmp 800-160Mg [Bactrim 1 tab PO BID 02/18/23 02/18/23 DS 800-160 mg] amLODIPine [Norvasc] 5 mg PO DAILY 02/18/23 02/18/23 rOPINIRole HCL [Requip] 2 mg PO TID 02/18/23 02/18/23 Previous Rx's Medication Instructions Recorded Docusate [Colace] 100 mg PO DAILY #20 capsule 02/18/23 Allergies Allergy/AdvReac Type Severity Reaction Status Date / Time Penicillins Allergy Rash/Hives Verified 02/18/23 22:40 Review of Systems ROS Statement: Those systems with pertinent positive or pertinent negative responses have been documented in the HPI. ROS Other: All systems not noted in ROS Statement are negative. Past Medical History Past Medical History: COPD Additional Past Medical History / Comment(s): throat cancer History of Any Multi-Drug Resistant Organisms: MRSA Date of last positivie culture/infection: 05/31/18 MDRO Source:: SPUTUM Past Surgical History: Hysterectomy Past Psychological History: Depression Past Alcohol Use History: None Reported Past Drug Use History: Prescription Drug Abuse General Exam General appearance: alert, in no apparent distress Head exam: Present: atraumatic, normocephalic, normal inspection Respiratory exam: Present: normal lung sounds bilaterally. Absent: respiratory distress, wheezes, rales, rhonchi, stridor Cardiovascular Exam: Present: regular rate, normal rhythm, normal heart sounds. Absent: systolic murmur, diastolic murmur, rubs, gallop, clicks GI/Abdominal exam: Present: soft, distended, tenderness (genralized), normal bowel sounds Back exam: Present: normal inspection Neurological exam: Present: alert, oriented X3, CN II-XII intact Psychiatric exam: Present: normal affect, normal mood Skin exam: Present: warm, dry, intact, normal color. Absent: rash Course Vital Signs 02/18/23 02/18/23 02/18/23 17:05 18:00 19:00 Temperature 98.2 F Pulse Rate 51 L Respiratory 18 18 18 Rate Blood Pressure 149/66 132/42 119/53 O2 Sat by Pulse 97 95 96 Oximetry Medical Decision Making - Medical Decision Making Was pt. sent in by a medical professional or institution (, PA, JERKER, urgent care, hospital, or detention...) When possible be specific @ -No Did you speak to anyone other than the patient for history (EMS, parent, family, police, friend...)? What history was obtained from this source @ -EMS providing some HPI Did you review nursing and triage notes (agree or disagree)? Why? @ -I reviewed and agree with nursing and triage notes Were old charts reviewed (outside hosp., previous admission, EMS record, old EKG, old radiological studies, urgent care reports/EKG's, detention records)? Report findings @ -No old charts were reviewed Differential Diagnosis (chest pain, altered mental status, abdominal pain women, abdominal pain men, vaginal bleeding, weakness, fever, dyspnea, syncope, headac he, dizziness, GI bleed, back pain, seizure, CVA, palpatations, mental health, musculoskeletal)? @ -Differential Abdominal Pain Women: Appendicitis, Cholecystitis, diverticulosis, ischemic bowel, pancreatitis, hepatitis, UTI, gastroenteritis, AAA, incarcerated hernia, bowel obstruction, constipation, inflammatory bowel, hepatitis, peptic ulcer disease, splenic infarction, perforated viscus, vulvitis, ovarian torsion, PID, kidney stone, placenta abruption, this is not meant to be an all-inclusive list EKG interpreted by me (3pts min.). @ -None X-rays interpreted by me (1pt min.). @ -KUB interpreted by me shows moderate amount of stool in colon. Nonspecific gas bowel pattern. Evidence of right hip arthroplasty displacement. CT interpreted by me (1pt min.). @ -None done U/S interpreted by me (1pt. min.). @ -None done What testing was considered but not performed or refused? (CT, X-rays, U/S, labs)? Why? @ -None What meds were considered but not given or refused? Why? @ -None Did you discuss the management of the patient with other professionals (professionals i.e. , PA, JERKER, lab, RT, psych nurse, social media intern, classroom monitor, teacher, foreign service officer, case briefer)? Give summary @ -No Was smoking cessation discussed for >3mins.? @ -No Was critical care preformed (if so, how long)? @ -No Were there social determinants of health that impacted care today? How? (Homelessness, low income, unemployed, alcoholism, drug addiction, transportation, low edu. Level, literacy, decrease access to med. care, halfway, rehab)? @ -Currently in detention for rehab Was there de-escalation of care discussed even if they declined (Discuss DNR or withdrawal of care, Hospice)? DNR status @ -No What co-morbidities impacted this encounter? (DM, HTN, Smoking, COPD, CAD, Cancer, CVA, ARF, Chemo, Hep., AIDS, mental health diagnosis, sleep apnea, morbid obesity)? @ -None Was patient admitted / discharged? Hospital course, mention meds given and route, prescriptions, significant lab abnormalities, going to OR and other pertinent info. @ -Discharge. Patient is a 72-year-old female presented ER via EMS with chief complaint of constipation. Vitals stable. Rectal exam was performed due to patient feeling she had stool stuck. Rectal exam was negative for any fecal impaction. KUB shows sign of constipation. X-ray also did show findings consistent with hip replacement with displaced hardware. Patient reported this is why she is in a nursing facility for pain control and help until she can be taken to surgery. Patient received a soapsuds and milk molasses enema. Patient was mildly successful and passed stool. Patient will be prescribed stool softeners. I believe this constipation is due to narcotic use as patient is prescribed [place] for chronic pain. Patient will be discharged in stable condition back to nursing facility via EMS. I instructed patient to follow-up with orthopedics for hip as scheduled. Return parameters were discussed. Patient expressed understanding and agreement with care plan. Undiagnosed new problem with uncertain prognosis? @ -No Drug Therapy requiring intensive monitoring for toxicity (Heparin, Nitro, Insulin, Cardizem)? @ -No Were any procedures done? @ -No Diagnosis/symptom? @ -Constipation/Right hip displacement Acute, or Chronic, or Acute on Chronic? @ -Acute Uncomplicated (without systemic symptoms) or Complicated (systemic symptoms)? @ -Uncomplicated Side effects of treatment? @ -No Exacerbation, Progression, or Severe Exacerbation? @ -No Poses a threat to life or bodily function? How? (Chest pain, USA, NE, pneumonia, PE, COPD, DKA, ARF, appy, cholecystitis, CVA, Diverticulitis, Homicidal, Suicidal, threat to staff... and all critical care pts) @ -No - Radiology Data Radiology results: report reviewed, image reviewed Disposition Clinical Impression: Constipation Disposition: HOME SELF-CARE Condition: Stable Instructions (If sedation given, give patient instructions): Constipation (ED) Additional Instructions: Please return to the Emergency Department if symptoms worsen or any other concerns. Prescriptions: Docusate [Colace] 100 mg PO DAILY #20 capsule Is patient prescribed a controlled substance at d/c from ED?: No Referrals: Johnson Vanegas MD [STAFF PHYSICIAN] - 1-2 days Time of Disposition: 23:54
[2023-02-18 17:51] VITALS: TEMP 98.2
--- NOTE | 2023-02-18 20:07 | XR ---
EXAMINATION TYPE: XR KUB DATE OF EXAM: 02/18/2023 5:29 PM CLINICAL INDICATION:Female, 72 years old with history of constipation; COMPARISON: None TECHNIQUE: One radiographic view of the abdomen was obtained. FINDINGS: The bowel gas pattern is nonspecific without dilated loops of small or large bowel. There i s no evidence for organomegaly or pneumoperitoneum. . No abnormal calcifications are present. Fecal material and gas are demonstrated throughout the colon and rectum. Right hip arthroplasty with the femoral head component not definitively with in the stem/neck. Multilevel degeneration changes throug hout the spine. IMPRESSION: 1. Nonspecific bowel gas pattern without radiographic evidence for acute process. 2. Right hip arthroplasty with the femoral head component not definitively with in the stem/neck. Co rrelate for displaced hardware.
[2023-02-19 00:29] VITALS: BP 106/37; PULSE 48; RESP 17
== END 2023-02-19 01:04 | disposition home or self-care (01) ==
LOC: EC 16:57 → EEVIPCON 16:57 → EC 02-19 01:04
DX: K59.00 Constipation, unspecified (principal); J44.9 Chronic obstructive pulmonary disease, unspecified; F32.A Depression, unspecified; Z88.0 Allergy status to penicillin; Z79.899 Other long term (current) drug therapy; Z79.82 Long term (current) use of aspirin
CPT/HCPCS: 74018; 99284

== ENCOUNTER 2023-03-16 22:55 | Inpatient (IN) | payer MEDICARE, OTHER ==
[2023-03-16 23:35] LABS: Basophils # (A) 0.1 k/uL (0-0.2); Basophils % (A) 1 %; Eosinophils # (A) 0.4 k/uL (0-0.7); Eosinophils % (A) 4 %; HCT 27.7 % (34.0-46.0); HGB 9.2 gm/dL (11.4-16.0); Hypochromasia Slight; Lymphocytes # (A) 1.9 k/uL (1.0-4.8); Lymphocytes % (A) 21 %; MCH 31.9 pg (25.0-35.0); MCHC 33.3 g/dL (31.0-37.0); MCV 95.9 fL (80.0-100.0); Mean Platelet Volume 8.2; Monocytes # (A) 0.6 k/uL (0-1.0); Monocytes % (A) 7 %; Neutrophils # (A) 5.8 k/uL (1.3-7.7); Neutrophils % (A) 65 %; Platelet Count 411 k/uL (150-450); RBC 2.89 m/uL (3.80-5.40); RDW 14.8 % (11.5-15.5); WBC 8.9 k/uL (3.8-10.6)
[2023-03-16 23:39] LABS: ALT 10 U/L (4-34); AST 21 U/L (14-36); African American GFR (CKD) 44 (>60 ml/min/1.73 sqM); Albumin 2.8 g/dL (3.5-5.0); Alkaline Phosphatase 133 U/L (38-126); Anion Gap 7 mmol/L; Blood Urea Nitrogen 35 mg/dL (7-17); Calcium 8.7 mg/dL (8.4-10.2); Carbon Dioxide 19 mmol/L (22-30); Chloride 112 mmol/L (98-107); Glucose 102 mg/dL (74-99); Lipase 807 U/L (23-300); Magnesium 1.5 mg/dL (1.6-2.3); Non-African American GFR(CKD) 38 (>60 ml/min/1.73 sqM); Potassium 4.1 mmol/L (3.5-5.1); Sodium 138 mmol/L (137-145); Total Bilirubin 0.3 mg/dL (0.2-1.3); Total Protein 5.9 g/dL (6.3-8.2)
[2023-03-16 23:47] LABS: NT-Pro-B-Type Natriuretic Pept 3100 pg/mL
[2023-03-16 23:49] LABS: INR 0.9 (<1.2); Partial Thromboplastin Time 24.6 sec (22.0-30.0); Prothrombin Time 9.9 sec (10.0-12.5)
[2023-03-16] MEDS ORDERED: SODIUM CHLORIDE 0.9% 500 ML 500 ML IV ONE (23:59)
--- NOTE | 2023-03-17 00:52 | CT ---
EXAM: CT Angiography Chest With Intravenous Contrast CLINICAL HISTORY: ITS.REASON CT Reason: chest pain r/o PE hx of aortic ulcer TECHNIQUE: Axial computed tomographic angiography images of the chest with intravenous contrast. CTDI is 25.2 mGy and DLP is 260.6 mGy-cm. This CT exam was performed using one or more of the following dose reduction techniques: automated exposure control, adjustment of the mA and/or kV according to patient size, and/or use of iterative reconstruction technique. MIP reconstructed images were created and reviewed. COMPARISON: No relevant prior studies available. FINDINGS: LUNGS: No focal consolidation, pleural effusion, or pneumothorax. Atelectasis at the lung bases. HEART: Cardiomegaly. VASCULATURE: No acute pulmonary embolism. Atherosclerotic changes of the aorta. THYROID: Within normal limits. MEDIASTINUM + LYMPH NODES: There are no pathologically enlarged mediastinal, hilar, or axillary lymph nodes. SUPERIOR ABDOMEN: Hepatic steatosis. Large hiatal hernia. MUSCULOSKELETAL: Degenerative changes. IMPRESSION: No acute pulmonary embolism.
[2023-03-17] MEDS ORDERED: HEPARIN SODIUM 1,000 UN/ML (10ML VL) IV PRN (01:15)
[2023-03-17] MEDS ORDERED: HEPARIN SODIUM 1,000 UN/ML (10ML VL) IV ONE (01:15)
[2023-03-17] MEDS ORDERED: HEPARIN SOD,PORK IN 0.45% NACL 25,000 UNIT in 0.45% NACL 1 250ML.BAG IV SCH (01:15)
--- NOTE | 2023-03-17 01:16 | ED ---
Chest Pain HPI - General Chief Complaint: Chest Pain Stated Complaint: Chest pain Time Seen by Provider: 03/16/23 22:58 Source: patient, EMS Mode of arrival: EMS - History of Present Illness Initial Comments: Yamilex is a pleasant 73-year-old female presents the ER today for evaluation of approximately 12 hours of squeezing and sharp retrosternal chest pain. Pain began without provocation is been persistent throughout the day. No associated diaphoresis lightheadedness or shortness of breath. No cough. No recent illness. No nausea or vomiting but she is eating less due to the discomfort. - Related Data Home Medications Medication Instructions Recorded Confirmed Acetaminophen Tab [Tylenol] 650 mg PO Q6H PRN 02/18/23 02/18/23 Amiodarone [Cordarone] 200 mg PO Q48H 02/18/23 02/18/23 Aspirin EC [Ecotrin Low Dose] 81 mg PO DAILY 02/18/23 02/18/23 Citalopram Hydrobromide [CeleXA] 20 mg PO DAILY 02/18/23 02/18/23 Fluticasone/Vilanterol [Breo 1 puff IN RT-DAILY 02/18/23 02/18/23 Ellipta 100-25 Mcg Inhaler] Gabapentin [Neurontin] 300 mg PO TID 02/18/23 02/18/23 HYDROcodone/APAP 5-325MG [[place] 1 tab PO Q6H PRN 02/18/23 02/18/23 5-325] Ipratropium-Albuterol Nebulize 3 ml INHALATION Q4H PRN 02/18/23 02/18/23 [Duoneb 0.5 mg-3 mg/3 ml Soln] Lactobacillus Acidophilus 1 cap PO BID 02/18/23 02/18/23 [Acidophilus] Lactulose 10 gm PO TID 02/18/23 02/18/23 Magnesium Hydroxide [Milk of 2,400 mg PO DAILY PRN 02/18/23 02/18/23 Magnesia] Metoclopramide [Reglan] 10 mg PO TID 02/18/23 02/18/23 Metoprolol Tartrate [Lopressor] 12.5 mg PO BID 02/18/23 02/18/23 Sennosides [Senokot] 17.2 mg PO BID 02/18/23 02/18/23 Sildenafil Citrate [Sildenafil] 20 mg PO TID 02/18/23 02/18/23 Simethicone [Simethicone Chew] 80 mg PO QID 02/18/23 02/18/23 Sodium Bicarbonate Tab 650 mg PO TID 02/18/23 02/18/23 Sulfamethox-Tmp 800-160Mg [Bactrim 1 tab PO BID 02/18/23 02/18/23 DS 800-160 mg] amLODIPine [Norvasc] 5 mg PO DAILY 02/18/23 02/18/23 rOPINIRole HCL [Requip] 2 mg PO TID 02/18/23 02/18/23 Previous Rx's Medication Instructions Recorded Docusate [Colace] 100 mg PO DAILY #20 capsule 02/18/23 Allergies Allergy/AdvReac Type Severity Reaction Status Date / Time Penicillins Allergy Rash/Hives Verified 02/18/23 22:40 sulfamethoxazole Allergy Rash/Hives Verified 03/16/23 23:12 [From Bactrim] trimethoprim [From Bactrim] Allergy Rash/Hives Verified 03/16/23 23:12 Review of Systems ROS Statement: Those systems with pertinent positive or pertinent negative responses have been documented in the HPI. ROS Other: All systems not noted in ROS Statement are negative. EKG Findings - EKG Comments: EKG Findings:: EKG interpreted by me, EKG obtained at 2303, rate is 70 rhythm is sinus with a left bundle-branch block, AL 143 QRS 140 QTc 461. There is no acute ST elevations or depressions no evidence of acute ischemia or infarction. When this EKG was compared to previous from 2019 the the left bundle-branch block is new Past Medical History Past Medical History: COPD, Hypertension Additional Past Medical History / Comment(s): throat cancer History of Any Multi-Drug Resistant Organisms: MRSA Date of last positivie culture/infection: 05/31/18 MDRO Source:: SPUTUM Past Surgical History: Hysterectomy Additional Past Surgical History / Comment(s): R hip surgery 02/2023. Past Psychological History: Depression Smoking Status: Current every day smoker Past Alcohol Use History: None Reported Past Drug Use History: Prescription Drug Abuse General Exam Limitations: no limitations General appearance: alert Head exam: Present: atraumatic Eye exam: Present: PERRL ENT exam: Present: normal exam Respiratory exam: Absent: respiratory distress Cardiovascular Exam: Present: regular rate GI/Abdominal exam: Present: soft. Absent: guarding Rectal exam: Present: deferred Extremities exam: Absent: pedal edema Neurological exam: Present: alert, oriented X3 Psychiatric exam: Present: normal affect, normal mood Course Vital Signs 03/16/23 03/17/23 03/17/23 23:04 00:11 01:30 Temperature 98.5 F Pulse Rate 67 65 60 Respiratory 18 19 16 Rate Blood Pressure 107/58 110/45 116/55 O2 Sat by Pulse 94 L 94 L 95 Oximetry 03/17/23 03/17/23 02:30 03:30 Temperature Pulse Rate 56 L 57 L Respiratory 15 14 Rate Blood Pressure 119/59 122/54 O2 Sat by Pulse 95 97 Oximetry Chest Pain MDM - MDM Was pt. sent in by a medical professional or institution (, PA, PAYABLE MANAGER, urgent care, hospital, or [facility]...) When possible be specific @ -No Did you speak to anyone other than the patient for history (EMS, parent, family, police, friend...)? What history was obtained from this source @ -Yes, EMS Did you review nursing and triage notes (agree or disagree)? Why? @ -I reviewed and agree with nursing and triage notes Were old charts reviewed (outside hosp., previous admission, EMS record, old EKG, old radiological studies, urgent care reports/EKG's, [facility] records)? Report findings @ -And previous admission and EKGs were reviewed Differential Diagnosis (chest pain, altered mental status, abdominal pain women, abdominal pain men, vaginal bleeding, weakness, fever, dyspnea, syncope, headache, dizziness, GI bleed, back pain, seizure, CVA, palpatations, mental health)? @ -Differential Chest Pain: Stable Angina, Unstable Angina, STEMI, NSTEMI Aortic Dissection, Pneumothorax, Musculoskeletal, Esophageal Spasm GERD, Cholecystitis, Pancreatitis, Zoster, this is not meant to be an all-inclusive list. EKG interpreted by me (3pts min.). @ -As above X-rays interpreted by me (1pt min.). @ -Chest x-ray with no consolidations no pneumothorax no widened mediastinum CT interpreted by me (1pt min.). @ -ET angiogram of the chest with no obvious pulmonary embolism U/S interpreted by me (1pt. min.). @ -None done What testing was considered but not performed or refused? (CT, X-rays, U/S, labs)? Why? @ -None What meds were considered but not given or refused? Why? @ -None Did you discuss the management of the patient with other professionals (professionals i.e. , PA, PAYABLE MANAGER, lab, RT, psych nurse, hospice social worker, commissioner of conciliation, teacher, youth probation officer, pillowcase maker)? Give summary @ -Discussed with admitting team Was smoking cessation discussed for >3mins.? @ -No Was critical care preformed (if so, how long)? @ -No Were there social determinants of health that impacted care today? How? (Homelessness, low income, unemployed, alcoholism, drug addiction, transportation, low edu. Level, literacy, decrease access to med. care, assisted, rehab)? @ -No Was there de-escalation of care discussed even if they declined (Discuss DNR or withdrawal of care, Hospice)? DNR status @ -No What co-morbidities impacted this encounter? (DM, HTN, Smoking, COPD, CAD, Cancer, CVA, ARF, Chemo, Hep., AIDS, mental health diagnosis, sleep apnea, morbid obesity)? @ -None Was patient admitted / discharged? Hospital course, mention meds given and route, prescriptions, significant lab abnormalities, going to OR and other pertinent info. @ -Admit The patient was seen and evaluated, history is obtained from the patient and EMS. Patient with epigastric and retrosternal pain, EKG shows a new left bundle-branch block however there is been no EKG for 5 years for comparison. Symptoms of the present greater than 12 hours. Troponin was indeterminate, lipase was significantly elevated. Heparin will be held at this time patient be treated with fluids and pain management troponin can be trended upon admission. Dr. Valdivia excepts the admission Undiagnosed new problem with uncertain prognosis? @ -No Drug Therapy requiring intensive monitoring for toxicity (Heparin, Nitro, Insulin, Cardizem)? @ -No Were any procedures done? @ -No Diagnosis/symptom? @ -Pancreatitis Acute, or Chronic, or Acute on Chronic? @ -Acute Uncomplicated (without systemic symptoms) or Complicated (systemic symptoms)? @ -default Side effects of treatment? @ -No Exacerbation, Progression, or Severe Exacerbation? @ -No Poses a threat to life or bodily function? How? (Chest pain, USA, [place], pneumonia, PE, COPD, DKA, ARF, appy, cholecystitis, CVA, Diverticulitis, Homicidal, Suicidal, threat to staff... and all critical care pts) @ -Yes, can lead to respiratory failure, ARDS and Disposition Clinical Impression: Pancreatitis Disposition: ADMITTED IP TO THIS HOSP Condition: Serious Is patient prescribed a controlled substance at d/c from ED?: No
--- NOTE | 2023-03-17 01:28 | XR ---
EXAM: XR Chest, 1 View CLINICAL HISTORY: ITS.REASON XR Reason: Chest Pain TECHNIQUE: Frontal view of the chest. COMPARISON: No relevant prior studies available. FINDINGS: Lungs: Unremarkable. No consolidation. Pleural space: Unremarkable. No pneumothorax. Heart: Cardiomegaly. Mediastinum: Unremarkable. Normal mediastinal contour. Bones/joints: Unremarkable. No acute fracture. Vasculature: Calcified aorta. IMPRESSION: No acute findings in the chest.
[2023-03-17] MEDS ORDERED: NALOXONE 0.4 MG/ML 1 ML VIAL IV PRN (02:28)
[2023-03-17] MEDS ORDERED: ONDANSETRON 4 MG/2 ML VIAL IVP PRN (02:28)
[2023-03-17] MEDS: MORPHINE SULFATE 4 MG/ML SYRINGE IV PRN ×4 (03:52→18:10)
[2023-03-17] MEDS: MAGNESIUM SULFATE-D5W PMX 1 GM in DEXTROSE/WATER 1 100ML.BAG IVPB SCH ×3 (03:55→06:35)
[2023-03-17] MEDS: SODIUM CHLORIDE 0.9% 1,000 ML IV SCH ×3 (04:05→20:47)
--- NOTE | 2023-03-17 04:15 | P.HPIM ---
History of Present Illness H&P Date: 03/17/23 Patient is a 73-year-old female with a PMH of recent right total hip replacement on 03/12, hypertension, and COPD who presents to the emergency room with complaints of left-sided chest discomfort and epigastric discomfort. Patient reports her pain started roughly 16 hours ago, was pleuritic on the left side of the chest, 5 out of 10 at maximal intensity, nonradiating, without associated shortness of breath, diaphoresis, dizziness, nausea. She also reports an epigastric aching discomfort during this time. Denies experiencing fever, chills, cough, diarrhea. In the emergency room chest CTA was unremarkable with chest x-ray also unremarkable. Laboratory evaluation was remarkable for D-dimer 7.20, proBNP 3100, lipase 807, magnesium 1.7, BUN 35, creatinine 1.37, and CO2 19 with hemoglobin 9.2. ED documentation reviewed and case discussed with ED provider. Review of systems: Pertinent positives and negatives as discussed in HPI, a complete review of systems was performed and all other systems are negative. Physical examination: Vital signs reviewed General: non toxic, no distress, appears at stated age, normal weight Derm: no unusual rashes/lesions, warm Head: atraumatic, normocephalic, symmetric Eyes: EOMI, no lid lag, anicteric sclera, pupils equal round reactive to light ENT: Nose and ears atraumatic Neck: No cervical lymphadenopathy, trachea midline, supple Mouth: no lip lesion, mucus membranes moist Cardiovascular: S1S2 reg, no murmur, positive dorsalis pedis pulse bilateral, no edema, left lateral chest wall tenderness Lungs: CTA bilateral, no rhonchi, no rales, no accessory muscle use Abdominal: soft, mild epigastric tenderness, no guarding Ext: muscle strength 5 out of 5 in all 4 extremities except right lower extremity proximal postsurgical, right anterior hip dressing in place clean and dry, grossly, no gross muscle atrophy, no contractures, Neuro: CN II-XI grossly intact, no gross focal neuro deficits Psych: Alert, oriented, appropriate affect Assessment: Acute pancreatitis Acute kidney injury Normocytic anemia, at baseline Hypomagnesemia Chronic conditions: COPD, hypertension Imaging: In the emergency room chest CTA was unremarkable with chest x-ray also unremarkable. Data Review: Laboratory evaluation was remarkable for D-dimer 7.20, proBNP 3100, lipase 807, magnesium 1.7, BUN 35, creatinine 1.37, and CO2 19 with hemoglobin 9.2. Plan: Continue with IV fluids normal saline 150 cc/h Consult GI Monitor lipase levels Pain control Monitor BMP Replace magnesium and monitor for resolution Continue with home meds once reconciled NPO for now DVT prophylaxis: Lovenox subcu The patient is admitted with an anticipated greater than than 2 midnight stay for evaluation of pancreatitis CODE STATUS: Full Code Discussed with: Patient Anticipated discharge place: [facility] Past Medical History Past Medical History: COPD, Hypertension Additional Past Medical History / Comment(s): throat cancer History of Any Multi-Drug Resistant Organisms: MRSA Date of last positivie culture/infection: 05/31/18 MDRO Source:: SPUTUM Past Surgical History: Hysterectomy Additional Past Surgical History / Comment(s): R hip surgery 02/2023. Past Psychological History: Depression Smoking Status: Current every day smoker Past Alcohol Use History: None Reported Past Drug Use History: Prescription Drug Abuse - Past Family History Mother Family Medical History: Hypertension Medications and Allergies Home Medications Medication Instructions Recorded Confirmed Type Acetaminophen Tab [Tylenol] 650 mg PO Q6H PRN 02/18/23 02/18/23 History Amiodarone [Cordarone] 200 mg PO Q48H 02/18/23 02/18/23 History Aspirin EC [Ecotrin Low Dose] 81 mg PO DAILY 02/18/23 02/18/23 History Citalopram Hydrobromide [CeleXA] 20 mg PO DAILY 02/18/23 02/18/23 History Docusate [Colace] 100 mg PO DAILY #20 capsule 02/18/23 Rx Fluticasone/Vilanterol [Breo 1 puff IN RT-DAILY 02/18/23 02/18/23 History Ellipta 100-25 Mcg Inhaler] Gabapentin [Neurontin] 300 mg PO TID 02/18/23 02/18/23 History HYDROcodone/APAP 5-325MG [[place] 1 tab PO Q6H PRN 02/18/23 02/18/23 History 5-325] Ipratropium-Albuterol Nebulize 3 ml INHALATION Q4H PRN 02/18/23 02/18/23 History [Duoneb 0.5 mg-3 mg/3 ml Soln] Lactobacillus Acidophilus 1 cap PO BID 02/18/23 02/18/23 History [Acidophilus] Lactulose 10 gm PO TID 02/18/23 02/18/23 History Magnesium Hydroxide [Milk of 2,400 mg PO DAILY PRN 02/18/23 02/18/23 History Magnesia] Metoclopramide [Reglan] 10 mg PO TID 02/18/23 02/18/23 History Metoprolol Tartrate [Lopressor] 12.5 mg PO BID 02/18/23 02/18/23 History Sennosides [Senokot] 17.2 mg PO BID 02/18/23 02/18/23 History Sildenafil Citrate [Sildenafil] 20 mg PO TID 02/18/23 02/18/23 History Simethicone [Simethicone Chew] 80 mg PO QID 02/18/23 02/18/23 History Sodium Bicarbonate Tab 650 mg PO TID 02/18/23 02/18/23 History Sulfamethox-Tmp 800-160Mg [Bactrim 1 tab PO BID 02/18/23 02/18/23 History DS 800-160 mg] amLODIPine [Norvasc] 5 mg PO DAILY 02/18/23 02/18/23 History rOPINIRole HCL [Requip] 2 mg PO TID 02/18/23 02/18/23 History Allergies Allergy/AdvReac Type Severity Reaction Status Date / Time Penicillins Allergy Rash/Hives Verified 02/18/23 22:40 sulfamethoxazole Allergy Rash/Hives Verified 03/16/23 23:12 [From Bactrim] trimethoprim [From Bactrim] Allergy Rash/Hives Verified 03/16/23 23:12 Physical Exam Vitals: Vital Signs Temp Pulse Resp BP Pulse Ox 03/17/23 03:30 57 L 14 122/54 97 03/17/23 02:30 56 L 15 119/59 95 03/17/23 01:30 60 16 116/55 95 03/17/23 00:11 65 19 110/45 94 L 03/16/23 23:04 98.5 F 67 18 107/58 94 L Intake and Output 03/16/23 03/16/23 03/17/23 14:59 22:59 06:59 Other: Weight 52.163 kg Results CBC & Chem 7: 03/16/23 23:10 03/16/23 23:10 Labs: Abnormal Lab Results - Last 24 Hours (Table) 03/16/23 03/16/23 03/16/23 Range/Units 23:10 23:10 23:10 RBC 2.89 L (3.80-5.40) m/uL Hgb 9.2 L (11.4-16.0) gm/dL Hct 27.7 L (34.0-46.0) % PT 9.9 L (10.0-12.5) sec D-Dimer 7.20 H (<0.60) mg/L FEU Chloride 112 H (98-107) mmol/L Carbon Dioxide 19 L (22-30) mmol/L BUN 35 H (7-17) mg/dL Creatinine 1.37 H (0.52-1.04) mg/dL Glucose 102 H (74-99) mg/dL Magnesium 1.5 L (1.6-2.3) mg/dL Alkaline Phosphatase 133 H (38-126) U/L Total Protein 5.9 L (6.3-8.2) g/dL Albumin 2.8 L (3.5-5.0) g/dL Lipase 807 H (23-300) U/L
[2023-03-17 06:15] LABS: HCT 27.3 % (34.0-46.0); HGB 8.8 gm/dL (11.4-16.0); Hypochromasia Moderate; MCH 31.8 pg (25.0-35.0); MCHC 32.4 g/dL (31.0-37.0); Mean Platelet Volume 7.8; Platelet Count 388 k/uL (150-450); RBC 2.79 m/uL (3.80-5.40); RDW 14.6 % (11.5-15.5); WBC 6.7 k/uL (3.8-10.6)
[2023-03-17 06:27] LABS: African American GFR (CKD) 48 (>60 ml/min/1.73 sqM); Anion Gap 8 mmol/L; Blood Urea Nitrogen 35 mg/dL (7-17); Calcium 8.4 mg/dL (8.4-10.2); Carbon Dioxide 15 mmol/L (22-30); Chloride 114 mmol/L (98-107); Glucose 101 mg/dL (74-99); Lipase 576 U/L (23-300); Non-African American GFR(CKD) 42 (>60 ml/min/1.73 sqM); Sodium 137 mmol/L (137-145)
[2023-03-17 06:28] LABS: Potassium 4.3 mmol/L (3.5-5.1)
[2023-03-17] MEDS: ENOXAPARIN 30 MG/0.3 ML SYRINGE SQ SCH (09:00)
--- NOTE | 2023-03-17 09:12 | US ---
EXAMINATION TYPE: US gallbladder DATE OF EXAM: 03/17/2023 COMPARISON: NONE CLINICAL INDICATION: Female, 73 years old with history of Abdominal pain, pancreatitis; TECHNIQUE: Multiple sonographic images of the right upper quadrant are obtained. FINDINGS: EXAM MEASUREMENTS: Liver Length: 16.8 cm Gallbladder Wall: 0.20 cm CBD: 0.31 cm Right Kidney: 7.9 x 4.0 x 3.8 cm [employer] NOTES:Patient unable to turn due to recent hip surgery Pancreas: Pancreatic duct is dilated measuring 0.34 cm Liver: wnl Gallbladder: Hyperechoic focus noted within the gallbladder Evidence for sonographic You's sign: No CBD: wnl Right Kidney: Lobulated contour IMPRESSION: 1. Gallstone is difficult to exclude. 2. Mildly prominent pancreatic duct. Consider CT correlation.
[2023-03-17] MEDS: PANTOPRAZOLE 40 MG/10 ML VIAL IV SCH (09:21)
--- NOTE | 2023-03-17 10:22 | P.CONS ---
History of Present Illness - Reason for Consult Consult date: 03/17/23 Pancreatitis Requesting physician: Lily Valdivia - Chief Complaint Chest pain - History of Present Illness This is a pleasant 73-year-old female who presented to the emergency department complaints of left-sided chest pain and rib pain. She recently underwent right total hip surgery on 03/12/2023 and an out side facility. She was admitted with a positive D-dimer and elevated lipase initially at 807. She had a CT angiogram of the chest that was negative for any acute cardiopulmonary disease. She denies any previous history of pancreatitis, denies any gallbladder disease, history of alcoholism however she does state that she was recently started on doxycycline and moxifloxacin since her surgery. She is unclear of how many days she has left. She currently states pain is somewhat improved, no nausea or vomiting. Repeat lipase today 576. Review of Systems REVIEW OF SYSTEMS: CARDIOPULMONARY: No chest pain or shortness of breath. Left chest pain Gastrointestinal: Epigastric pain. No nausea or vomiting. No hematemesis, coffee-ground emesis. No rectal bleeding, or melena. GENITOURINARY: No dysuria or hematuria. MUSCULOSKELETAL: Reports normal range of motion., Joint pain. Right hip pain, underwent recent surgery SKIN: No rashes. No jaundice. ENDOCRINE: No chills, fevers. No excessive weight gain or loss. No polydipsia or polyuria. PSYCHIATRIC: Unremarkable. NEUROLOGY: No change in mental status. Denies dizziness, headache. ENT: Vision unremarkable. CONSTITUTIONAL: No recent weight loss. No fever, chills, night sweats. Past Medical History Past Medical History: Atrial Fibrillation, COPD, Diabetes Mellitus, Hypertension, Renal Disease Additional Past Medical History / Comment(s): throat cancer History of Any Multi-Drug Resistant Organisms: MRSA Year Discovered:: 05/31/18 MDRO Source:: SPUTUM Past Surgical History: Hysterectomy, Orthopedic Surgery Additional Past Surgical History / Comment(s): R hip surgery 02/2023. Past Psychological History: Depression Smoking Status: Current every day smoker Past Alcohol Use History: None Reported Past Drug Use History: Prescription Drug Abuse - Past Family History Mother Family Medical History: Hypertension Medications and Allergies Home Medications Medication Instructions Recorded Confirmed Type Acetaminophen Tab [Tylenol] 650 mg PO Q6H PRN MDD 4000mg 02/18/23 03/17/23 History Amiodarone [Cordarone] 200 mg PO Q2D 02/18/23 03/17/23 History Aspirin EC [Ecotrin Low Dose] 81 mg PO DAILY 02/18/23 03/17/23 History Citalopram Hydrobromide [CeleXA] 20 mg PO DAILY 02/18/23 03/17/23 History Fluticasone/Vilanterol [Breo 1 puff INHALATION RT-DAILY 02/18/23 03/17/23 History Ellipta 100-25 Mcg Inhaler] Gabapentin [Neurontin] 300 mg PO TID 02/18/23 03/17/23 History HYDROcodone/APAP 5-325MG [[place] 1 tab PO Q4H PRN 02/18/23 03/17/23 History 5-325] Ipratropium-Albuterol Nebulize 3 ml INHALATION RT-Q4H PRN 02/18/23 03/17/23 History [Duoneb 0.5 mg-3 mg/3 ml Soln] Lactobacillus Acidophilus 1 cap PO BID 02/18/23 03/17/23 History [Acidophilus] Lactulose 20 gm PO DAILY 02/18/23 03/17/23 History Metoclopramide [Reglan] 10 mg PO QID 02/18/23 03/17/23 History Sennosides [Senokot] 17.2 mg PO HS 02/18/23 03/17/23 History Sildenafil Citrate [Sildenafil] 20 mg PO TID 02/18/23 03/17/23 History Sodium Bicarbonate Tab 650 mg PO TID 02/18/23 03/17/23 History amLODIPine [Norvasc] 5 mg PO DAILY 02/18/23 03/17/23 History rOPINIRole HCL [Requip] 2 mg PO HS 02/18/23 03/17/23 History Cholecalciferol [Vitamin D3 (25 25 mcg PO DAILY 03/17/23 03/17/23 History Mcg = 1000 Iu)] Doxycycline [Vibramycin] 100 mg PO DAILY 03/17/23 03/17/23 History Moxifloxacin HCl [Avelox] 400 mg PO DAILY 03/17/23 03/17/23 History Multivitamins, Thera [Multivitamin 1 tab PO DAILY 03/17/23 03/17/23 History (formulary)] Naldemedine Tosylate [Symproic] 0.2 mg PO DAILY 03/17/23 03/17/23 History methocarbamoL [Robaxin] 500 mg PO BID PRN 03/17/23 03/17/23 History Allergies Allergy/AdvReac Type Severity Reaction Status Date / Time Penicillins Allergy Rash/Hives Verified 03/17/23 06:52 sulfamethoxazole Allergy Rash/Hives Verified 03/17/23 06:52 [From Bactrim] trimethoprim [From Bactrim] Allergy Rash/Hives Verified 03/17/23 06:52 Physical Exam Vitals: Vital Signs Temp Pulse Resp BP Pulse Ox 03/17/23 03:30 57 L 14 122/54 97 03/17/23 02:30 56 L 15 119/59 95 03/17/23 01:30 60 16 116/55 95 03/17/23 00:11 65 19 110/45 94 L 03/16/23 23:04 98.5 F 67 18 107/58 94 L Intake and Output 03/16/23 03/17/23 03/17/23 22:59 06:59 14:59 Intake Total 1100 Output Total 500 Balance 600 Intake: Intake, IV Titration 1100 Amount Magnesium Sulfate-D5w Pmx 100 1 gm In Dextrose/Water 1 100ml.bag @ 100 mls/hr IVPB Q1H [facility] Rx#: [id number] Magnesium Sulfate-D5w Pmx 100 1 gm In Dextrose/Water 1 100ml.bag @ 100 mls/hr IVPB Q1H [facility] Rx#: [id number] Sodium Chloride 0.9% 1, 900 000 ml @ 150 mls/hr IV . Q6H40M [facility] Rx#:[id number] Output: Urine 500 Other: Weight 52.163 kg General appearance: The patient is alert, oriented, appears in no acute distress. HET: Head is normocephalic and atraumatic. Conjunctiva pink. Sclera anicteric. Neck: Supple without lymphadenopathy. Trachea midline. Heart: Regular. Lungs: Equal expansion, normal respiratory effort. Abdomen: Soft, epigastric tenderness, nondistended with bowel sounds. No guarding or rigidity. Skin: No rashes. No jaundice. Extremities: Normal skin color and turgor. No pedal edema. Neurological: No focal deficits. Alert and oriented x3. Results CBC & Chem 7: 03/17/23 05:46 03/17/23 05:46 Labs: Abnormal Lab Results - Last 24 Hours (Table) 03/16/23 03/16/23 03/16/23 Range/Units 23:10 23:10 23:10 RBC 2.89 L (3.80-5.40) m/uL Hgb 9.2 L (11.4-16.0) gm/dL Hct 27.7 L (34.0-46.0) % PT 9.9 L (10.0-12.5) sec D-Dimer 7.20 H (<0.60) mg/L FEU Chloride 112 H (98-107) mmol/L Carbon Dioxide 19 L (22-30) mmol/L BUN 35 H (7-17) mg/dL Creatinine 1.37 H (0.52-1.04) mg/dL Glucose 102 H (74-99) mg/dL Magnesium 1.5 L (1.6-2.3) mg/dL Alkaline Phosphatase 133 H (38-126) U/L Total Protein 5.9 L (6.3-8.2) g/dL Albumin 2.8 L (3.5-5.0) g/dL Lipase 807 H (23-300) U/L 03/17/23 03/17/23 Range/Units 05:46 05:46 RBC 2.79 L (3.80-5.40) m/uL Hgb 8.8 L (11.4-16.0) gm/dL Hct 27.3 L (34.0-46.0) % PT (10.0-12.5) sec D-Dimer (<0.60) mg/L FEU Chloride 114 H (98-107) mmol/L Carbon Dioxide 15 L (22-30) mmol/L BUN 35 H (7-17) mg/dL Creatinine 1.26 H (0.52-1.04) mg/dL Glucose 101 H (74-99) mg/dL Magnesium (1.6-2.3) mg/dL Alkaline Phosphatase (38-126) U/L Total Protein (6.3-8.2) g/dL Albumin (3.5-5.0) g/dL Lipase 576 H (23-300) U/L CT scan - chest: report reviewed (No acute pulmonary embolism) US - abdomen: report reviewed (Gallstone is difficult to exclude. Mildly prominent pancreatic duct. Consider CT correlation. CBD 0.31 cm) Assessment and Plan (1) Pancreatitis Narrative/Plan: 73-year-old female presented for chest pain with a positive D-dimer. She underwent on CTA of the chest that was negative for acute pulmonary embolism. She was noted to have mildly elevated lipase on admission just over 807 without any elevation in her liver enzymes. No prior history of pancreatitis, no history of alcoholism. Was recently started on 2 antibiotics doxycycline and moxifloxacin. Possible cause of pancreatitis is medication induced likely from antibiotics. Will obtain gallbladder ultrasound as well. Labs are not consistent with a cholestatic pattern not likely gallstone pancreatitis. Current Visit: Yes Status: Acute Code(s): K85.90 - ACUTE PANCREATITIS WITHOUT NECROSIS OR INFECTION, UNSP SNOMED Code(s): 71880958 Plan: 1. Continue symptomatic and supportive care 2. Patient may have clear liquid diet 3. Gallbladder ultrasound ordered 4. Repeat LFTs 5. Recommend holding or changing antibiotic therapy 6. Aggressive IV hydration, pain medication as needed 7. Encourage ambulation Thank you for this consultation, we will continue to follow. Dr. Alejandra Pineda I agree with the dictator's note, documented as a scribe by Michelle CANO.
[2023-03-17 10:50] LABS: Albumin 2.5 g/dL (3.5-5.0); Albumin/Globulin Ratio 0.8; Total Bilirubin 0.3 mg/dL (0.2-1.3); Total Protein 5.5 g/dL (6.3-8.2)
[2023-03-17] MEDS ORDERED: IPRATROPIUM-ALBUTEROL 3 ML NEB INHALATION PRN (14:04)
[2023-03-17] MEDS ORDERED: AMIODARONE 200 MG TAB PO SCH (14:15)
[2023-03-17] MEDS: HYDROcodone/APAP 5-325MG 1 EACH TAB PO PRN ×2 (14:51→20:48)
[2023-03-17] MEDS: SODIUM BICARBONATE TAB 650 MG TAB PO SCH ×2 (16:06→20:48)
[2023-03-17] MEDS: GABAPENTIN 300 MG CAP PO SCH ×2 (16:06→20:48)
[2023-03-17] MEDS: SILDENAFIL 20 MG TAB PO SCH ×2 (16:06→20:48)
[2023-03-17] MEDS: SYMBICORT 80-4.5 MCG INHALER INHALATION SCH (19:42)
[2023-03-18] MEDS: HYDROcodone/APAP 5-325MG 1 EACH TAB PO PRN ×4 (02:28→17:04)
[2023-03-18] MEDS: SODIUM CHLORIDE 0.9% 1,000 ML IV SCH ×3 (02:28→16:10)
[2023-03-18] MEDS: ENOXAPARIN 30 MG/0.3 ML SYRINGE SQ SCH (08:11)
[2023-03-18] MEDS: SILDENAFIL 20 MG TAB PO SCH ×3 (08:11→22:07)
[2023-03-18] MEDS: PANTOPRAZOLE 40 MG/10 ML VIAL IV SCH (08:11)
[2023-03-18] MEDS: amLODIPine 5 MG TAB PO SCH (08:11)
[2023-03-18] MEDS: SODIUM BICARBONATE TAB 650 MG TAB PO SCH ×3 (08:11→22:08)
[2023-03-18] MEDS: GABAPENTIN 300 MG CAP PO SCH ×3 (08:11→22:07)
[2023-03-18] MEDS: ASPIRIN 81 MG PO SCH (08:11)
[2023-03-18] MEDS: CITALOPRAM HYDROBROMIDE 20 MG TAB PO SCH (08:11)
[2023-03-18 08:32] LABS: HGB 8.5 gm/dL (11.4-16.0); Hypochromasia Marked; MCH 31.4 pg (25.0-35.0); MCHC 31.4 g/dL (31.0-37.0); MCV 99.8 fL (80.0-100.0); Macrocytosis Slight; Mean Platelet Volume 7.6; Platelet Count 353 k/uL (150-450); RDW 14.5 % (11.5-15.5); WBC 8.1 k/uL (3.8-10.6)
[2023-03-18 08:53] LABS: African American GFR (CKD) 62 (>60 ml/min/1.73 sqM); Anion Gap 4 mmol/L; Blood Urea Nitrogen 22 mg/dL (7-17); Carbon Dioxide 16 mmol/L (22-30); Chloride 118 mmol/L (98-107); Glucose 88 mg/dL (74-99); Non-African American GFR(CKD) 54 (>60 ml/min/1.73 sqM); Potassium 4.7 mmol/L (3.5-5.1); Sodium 138 mmol/L (137-145)
[2023-03-18] MEDS: SYMBICORT 80-4.5 MCG INHALER INHALATION SCH ×2 (09:55→20:32)
--- NOTE | 2023-03-18 12:23 | P.PN ---
Subjective Progress Note Date: 03/18/23 Patient is a 73-year-old female with a PMH of recent right total hip replacement on 03/12, hypertension, and COPD who presents to the emergency room with complaints of left-sided chest discomfort and epigastric discomfort. Patient reports her pain started roughly 16 hours ago, was pleuritic on the left side of the chest, 5 out of 10 at maximal intensity, nonradiating, without associated shortness of breath, diaphoresis, dizziness, nausea. She also reports an epigastric aching discomfort during this time. In the emergency room chest CTA was unremarkable with chest x-ray also unremarkable. Laboratory evaluation was remarkable for D-dimer 7.20, proBNP 3100, lipase 807, magnesium 1.7, BUN 35, creatinine 1.37, and CO2 19 with hemoglobin 9.2. Patient was admitted for pancreatitis and treated with IVF and pain control. GI was consulted, GB US ordered which was inconclusive. 03/18 Patient was seen and examined. She continues to reports epigastric discomfort, 8/10 severity. She does also complain of muscle cramping under her left breast, worse with left arm movement. Some nausea but no vomiting. Unable to eat breakfast this morning. Switched to FLD. CBC Hg 8.5 Hct 27. BMP Cl 118, bicarb 16, BUN 22, Ca 8. Lipase 114. Vital signs reviewed General: non toxic, no distress, appears at stated age, normal weight Derm: no unusual rashes/lesions, warm Head: atraumatic, normocephalic, symmetric Eyes: EOMI, no lid lag, anicteric sclera ENT: Nose and ears atraumatic Neck: No cervical lymphadenopathy, trachea midline, supple Mouth: no lip lesion, mucus membranes moist Cardiovascular: S1S2 reg, no murmur, left lateral chest wall tenderness Lungs: CTA bilateral, no rhonchi, no rales, no accessory muscle use Abdominal: soft, mild epigastric tenderness, no guarding Ext: muscle strength 5 out of 5 in all 4 extremities except right lower extremity proximal postsurgical, right anterior hip dressing in place clean and dry, grossly, no gross muscle atrophy, no contractures, Neuro: no gross focal neuro deficits Psych: Alert, oriented, appropriate affect Based on my assessment of this patient, this patient meets a moderate complexity level of care. Patient has a new diagnosis of pancreatitis with uncertain prognosis. Acute pancreatitis: Decreased NS to 75 cc/hr. Pain control with [place] 5 PO Q4H PRN and Morphine 4 mg IV Q4H PRN. GI on board. FLD and advance as tolerated. Chest pain: MSK in nature. Pain control as above. Acute kidney injury: Resolving with IV hydration. Probably superimposed on CKD. Normocytic anemia, at baseline Hypomagnesemia Chronic conditions: COPD, hypertension CODE STATUS: FULL CODE. DVT Prophylaxis: Lovenox SQ GI Prophylaxis: Protonix IV Designated medical POA if patient is not able to make medical decisions for themselves: I have reviewed the following events solutions consultant notes: GI note. I have reviewed the results of the following tests: CBC, BMP, Lipase. I have ordered the following tests: Mag. I have discussed the care of this patient with the following independent historian: I have independently interpreted the following test below: I have discussed the management of this patient with the following physician: Objective - Vital Signs Vital signs: Vital Signs Temp 98.9 F 03/18/23 07:15 Pulse 75 03/18/23 07:15 Resp 16 03/18/23 07:15 BP 104/64 03/18/23 07:15 Pulse Ox 95 03/18/23 09:58 FiO2 Intake & Output 03/17/23 03/18/23 03/18/23 18:59 06:59 18:59 Intake Total 2040 Output Total 800 700 Balance -800 1340 Intake: Intake, IV Titration 1800 Amount Sodium Chloride 0.9% 1, 1800 000 ml @ 150 mls/hr IV . Q6H40M [facility] Rx#:[id number] Oral 240 Output: Urine 800 700 Other: Voiding Method Indwelling Catheter Indwelling Catheter Indwelling Catheter - Labs CBC & Chem 7: 03/18/23 08:09 03/18/23 08:09 Labs: Abnormal Lab Results - Last 24 Hours (Table) 03/18/23 03/18/23 03/18/23 Range/Units 05:37 08:09 08:09 RBC 2.70 L (3.80-5.40) m/uL Hgb 8.5 L (11.4-16.0) gm/dL Hct 27.0 L (34.0-46.0) % Chloride 118 H (98-107) mmol/L Carbon Dioxide 16 L (22-30) mmol/L BUN 22 H (7-17) mg/dL Calcium 8.0 L (8.4-10.2) mg/dL Lipase 114 H (14-63) U/L
[2023-03-18] MEDS ORDERED: MAGNESIUM SULFATE-D5W PMX 1 GM in DEXTROSE/WATER 1 100ML.BAG IVPB SCH (12:30)
--- NOTE | 2023-03-18 12:36 | P.PN ---
Subjective Progress Note Date: 03/18/23 Principal diagnosis: Acute mild pancreatitis This is a pleasant 73-year-old female who presented to the emergency department complaints of left-sided chest pain and rib pain. She recently underwent right total hip surgery on 03/12/2023 and an out side facility. She was admitted with a positive D-dimer and elevated lipase initially at 807. She had a CT angiogram of the chest that was negative for any acute cardiopulmonary disease. She denies any previous history of pancreatitis, denies any gallbladder disease, history of alcoholism however she does state that she was recently started on doxycycline and moxifloxacin since her surgery. She is unclear of how many days she has left. She currently states pain is somewhat improved, no nausea or vomiting. Repeat lipase today 576. 03/18/2023 Patient seen and examined today as a follow-up. Patient was resting comfortably but easily arousable. States she is still having pain in her left breast region and left ribs. They are tender to palpation and pain is reproducible. Denies any abdominal pain, nausea or vomiting. Repeat lipase down to 114. Patient has been able to tolerate clear liquid diet and is advanced to full liquid diet for lunch. Objective - Vital Signs Vital signs: Vital Signs Temp 98.9 F 03/18/23 07:15 Pulse 75 03/18/23 07:15 Resp 16 03/18/23 07:15 BP 104/64 03/18/23 07:15 Pulse Ox 95 03/18/23 09:58 FiO2 Intake & Output 03/17/23 03/18/23 03/18/23 18:59 06:59 18:59 Intake Total 2040 Output Total 800 700 Balance -800 1340 Intake: Intake, IV Titration 1800 Amount Sodium Chloride 0.9% 1, 1800 000 ml @ 150 mls/hr IV . Q6H40M [facility] Rx#:[id number] Oral 240 Output: Urine 800 700 Other: Voiding Method Indwelling Catheter Indwelling Catheter Indwelling Catheter - Exam General appearance: The patient is alert, oriented, appears in no acute distress. HET: Head is normocephalic and atraumatic. Conjunctiva pink. Sclera anicteric. Neck: Supple without lymphadenopathy. Abdomen: Patient with tenderness along her left ribs and breastbone. Abdomen soft, mild tenderness in the epigastric region, nondistended with bowel sounds. No guarding or rigidity. Extremities: Normal skin color and turgor. No pedal edema Skin: No rashes, no jaundice Neurological: No focal deficits. Alert and oriented. - Labs CBC & Chem 7: 03/18/23 08:09 03/18/23 08:09 Labs: Abnormal Lab Results - Last 24 Hours (Table) 03/18/23 03/18/23 03/18/23 Range/Units 05:37 08:09 08:09 RBC 2.70 L (3.80-5.40) m/uL Hgb 8.5 L (11.4-16.0) gm/dL Hct 27.0 L (34.0-46.0) % Chloride 118 H (98-107) mmol/L Carbon Dioxide 16 L (22-30) mmol/L BUN 22 H (7-17) mg/dL Calcium 8.0 L (8.4-10.2) mg/dL Lipase 114 H (14-63) U/L Assessment and Plan (1) Pancreatitis Narrative/Plan: 73-year-old female presented for chest pain with a positive D-dimer. She underwent on CTA of the chest that was negative for acute pulmonary embolism. She was noted to have mildly elevated lipase on admission just over 807 without any elevation in her liver enzymes. No prior history of pancreatitis, no history of alcoholism. Was recently started on 2 antibiotics doxycycline and moxifloxacin. Possible cause of pancreatitis is medication induced likely from antibiotics. Will obtain gallbladder ultrasound as well. Labs are not consistent with a cholestatic pattern not likely gallstone pancreatitis. Again unclear etiology of pancreatitis could be medication induced. Gallbladder ultrasound does report mildly prominent pancreatic duct with hyperechoic focus noted within the gallbladder gallstone is difficult to exclude. CBD not dilated measuring at 0.31 cm. Current Visit: Yes Status: Acute Code(s): K85.90 - ACUTE PANCREATITIS WITHOUT NECROSIS OR INFECTION, UNSP SNOMED Code(s): 29311259 (2) Musculoskeletal pain Current Visit: Yes Status: Acute Code(s): M79.18 - MYALGIA, OTHER SITE SNOMED Code(s): 916517631 Plan: 1. Continue symptomatic and supportive care 2. Agree with advance to full liquid diet then advance as tolerated 3. Gallbladder ultrasound ordered and reviewed 4. Recommend holding or changing antibiotic therapy 5. Continue hydration, pain medication as needed 6. Mild pancreatitis resolving. Ultrasound reviewed, no CBD dilation. No further workup indicated. Unclear etiology of left rib pain. Thank you for this consultation, patient is cleared from gastroenterology for discharge. Dr. Alejandra Pineda I agree with the dictator's note, docume.nted as a scribe by Michelle Stephens.
[2023-03-18 14:11] LABS: Magnesium 1.9 mg/dL (1.6-2.3)
[2023-03-18] MEDS: MORPHINE SULFATE 4 MG/ML SYRINGE IV PRN (20:24)
[2023-03-19] MEDS: HYDROcodone/APAP 5-325MG 1 EACH TAB PO PRN ×2 (00:53→11:02)
[2023-03-19] MEDS: SODIUM CHLORIDE 0.9% 1,000 ML IV SCH (02:01)
[2023-03-19] MEDS: SYMBICORT 80-4.5 MCG INHALER INHALATION SCH (08:04)
[2023-03-19] MEDS: MORPHINE SULFATE 4 MG/ML SYRINGE IV PRN ×2 (08:09→14:06)
[2023-03-19] MEDS ORDERED: AMIODARONE 200 MG TAB PO SCH (09:00)
[2023-03-19] MEDS ORDERED: ENOXAPARIN 40 MG/0.4 ML SYRINGE SQ SCH (09:00)
[2023-03-19] MEDS: methocarbamoL 500 MG TAB PO SCH ×2 (11:02→13:48)
--- NOTE | 2023-03-19 11:50 | P.DS ---
Providers Date of admission: 03/17/23 02:28 Expected date of discharge: 03/19/23 Attending physician: Lily Valdivia MD Consults: 03/17/23 04:14 Consult Physician Urgent Consulting Provider: Merary Pineda Consult Reason/Comments: pancreatitis Do you want consulting provider notified?: Yes Primary care physician: [facility] Course: Patient is a 73-year-old female with a PMH of recent right total hip replacement on 03/12, hypertension, and COPD who presents to the emergency room with complaints of left-sided chest discomfort and epigastric discomfort. Patient reports her pain started roughly 16 hours ago, was pleuritic on the left side of the chest, 5 out of 10 at maximal intensity, nonradiating, without associated shortness of breath, diaphoresis, dizziness, nausea. She also reports an epigastric aching discomfort during this time. In the emergency room chest CTA was unremarkable with chest x-ray also unremarkable. Laboratory evaluation was remarkable for D-dimer 7.20, proBNP 3100, lipase 807, magnesium 1.7, BUN 35, creatinine 1.37, and CO2 19 with hemoglobin 9.2. Patient was admitted for pancreatitis and treated with IVF and pain control. GI was consulted, GB US ordered which was inconclusive. 03/18 Patient was seen and examined. She continues to reports epigastric discomfort, 8/10 severity. She does also complain of muscle cramping under her left breast, worse with left arm movement. Some nausea but no vomiting. Unable to eat breakfast this morning. Switched to FLD. CBC Hg 8.5 Hct 27. BMP Cl 118, bicarb 16, BUN 22, Ca 8. Lipase 114. 03/19 Patient was seen and examined. Tolerating FLD. GI has cleared the patient for discharge. Her pancreatitis could be related to the antibiotics she was started on (Doxycycline). The majority of her pain seem to be related to her left sided chest pain which is obviously musculoskeletal. I advised heating pads and Robaxin/[place] as needed. Treat right hip incision cellulitis with Augmentin for 5 days (PCN allergy is itching and hives). She is to follow up with her Orthopedic surgery within 1 week of discharge. She is to return back to [facility] today. Vital signs reviewed General: non toxic, no distress, appears at stated age, normal weight Derm: no unusual rashes/lesions, warm Head: atraumatic, normocephalic, symmetric Eyes: EOMI, no lid lag, anicteric sclera ENT: Nose and ears atraumatic Cardiovascular: S1S2 reg, no murmur, left lateral chest wall tenderness Lungs: CTA bilateral, no rhonchi, no rales, no accessory muscle use Abdominal: soft, mild epigastric tenderness, no guarding Ext: muscle strength 5 out of 5 in all 4 extremities except right lower extremity proximal postsurgical, right anterior hip mild erythema Neuro: no gross focal neuro deficits Psych: Alert, oriented, appropriate affect Discharge Diagnosis: Acute pancreatitis Chest pain: MSK in nature Right hip cellulitis Acute kidney injury Normocytic anemia, at baseline Hypomagnesemia Chronic conditions: COPD, hypertension This complex discharge took 35 minutes to complete. Patient Condition at Discharge: Stable Plan - Discharge Summary Discharge Rx Participant: No New Discharge Prescriptions: New Pantoprazole [Protonix] 40 mg PO DAILY #30 tab methocarbamoL [Robaxin] 1,000 mg PO QID PRN #0 tab PRN Reason: Muscle Spasm Amoxic-Pot Clav 875-125Mg [Augmentin 875-125] 1 tab PO Q12HR 5 Days #10 tab Continue Sodium Bicarbonate Tab 650 mg PO TID Sennosides [Senokot] 17.2 mg PO HS Metoclopramide [Reglan] 10 mg PO QID Ipratropium-Albuterol Nebulize [Duoneb 0.5 mg-3 mg/3 ml Soln] 3 ml INHALATION RT-Q4H PRN PRN Reason: Shortness Of Breath/Wheezing Lactulose 20 gm PO DAILY Fluticasone/Vilanterol [Breo Ellipta 100-25 Mcg Inhaler] 1 puff INHALATION RT-DAILY Citalopram Hydrobromide [CeleXA] 20 mg PO DAILY Amiodarone [Cordarone] 200 mg PO Q2D Acetaminophen Tab [Tylenol] 650 mg PO Q6H PRN MDD 4000mg PRN Reason: Pain Cholecalciferol [Vitamin D3 (25 Mcg = 1000 Iu)] 25 mcg PO DAILY Gabapentin [Neurontin] 300 mg PO TID #9 cap HYDROcodone/APAP 5-325MG [[place] 5-325] 1 tab PO Q4H PRN #18 tab PRN Reason: Pain Sildenafil Citrate 20 mg PO TID rOPINIRole HCL [Requip] 2 mg PO HS Lactobacillus Acidophilus [Acidophilus] 1 cap PO BID Aspirin EC [Ecotrin Low Dose] 81 mg PO DAILY amLODIPine [Norvasc] 5 mg PO DAILY Multivitamins, Thera [Multivitamin (formulary)] 1 tab PO DAILY Naldemedine Tosylate [Symproic] 0.2 mg PO DAILY Discontinued Doxycycline [Vibramycin] 100 mg PO DAILY Moxifloxacin HCl [Avelox] 400 mg PO DAILY methocarbamoL [Robaxin] 500 mg PO BID PRN PRN Reason: Muscle Spasm Discharge Medication List Acetaminophen Tab [Tylenol] 650 mg PO Q6H PRN MDD 4000mg 02/18/23 [History] Amiodarone [Cordarone] 200 mg PO Q2D 02/18/23 [History] Aspirin EC [Ecotrin Low Dose] 81 mg PO DAILY 02/18/23 [History] Citalopram Hydrobromide [CeleXA] 20 mg PO DAILY 02/18/23 [History] Fluticasone/Vilanterol [Breo Ellipta 100-25 Mcg Inhaler] 1 puff INHALATION RT- DAILY 02/18/23 [History] Ipratropium-Albuterol Nebulize [Duoneb 0.5 mg-3 mg/3 ml Soln] 3 ml INHALATION RT-Q4H PRN 02/18/23 [History] Lactobacillus Acidophilus [Acidophilus] 1 cap PO BID 02/18/23 [History] Lactulose 20 gm PO DAILY 02/18/23 [History] Metoclopramide [Reglan] 10 mg PO QID 02/18/23 [History] Sennosides [Senokot] 17.2 mg PO HS 02/18/23 [History] Sildenafil Citrate 20 mg PO TID 02/18/23 [History] Sodium Bicarbonate Tab 650 mg PO TID 02/18/23 [History] amLODIPine [Norvasc] 5 mg PO DAILY 02/18/23 [History] rOPINIRole HCL [Requip] 2 mg PO HS 02/18/23 [History] Cholecalciferol [Vitamin D3 (25 Mcg = 1000 Iu)] 25 mcg PO DAILY 03/17/23 [History] Multivitamins, Thera [Multivitamin (formulary)] 1 tab PO DAILY 03/17/23 [History] Naldemedine Tosylate [Symproic] 0.2 mg PO DAILY 03/17/23 [History] Amoxic-Pot Clav 875-125Mg [Augmentin 875-125] 1 tab PO Q12HR 5 Days #10 tab 03/19/23 [Rx] Gabapentin [Neurontin] 300 mg PO TID #9 cap 03/19/23 [Rx] HYDROcodone/APAP 5-325MG [[place] 5-325] 1 tab PO Q4H PRN #18 tab 03/19/23 [Rx] Pantoprazole [Protonix] 40 mg PO DAILY #30 tab 03/19/23 [Rx] methocarbamoL [Robaxin] 1,000 mg PO QID PRN #0 tab 03/19/23 [Rx] Follow up Appointment(s)/Referral(s): [facility] [Primary Care Provider] - 1-2 days Activity/Diet/Wound Care/Special Instructions: Follow up with your Orthopedic surgeon within 1 week of discharge. Discharge Disposition: TRANSFER TO SNF/ECF
[2023-03-19] MEDS: SODIUM BICARBONATE TAB 650 MG TAB PO SCH ×2 (12:16→16:29)
[2023-03-19] MEDS: GABAPENTIN 300 MG CAP PO SCH ×2 (12:16→16:28)
[2023-03-19] MEDS: SILDENAFIL 20 MG TAB PO SCH ×2 (12:16→16:28)
[2023-03-19] MEDS: CITALOPRAM HYDROBROMIDE 20 MG TAB PO SCH (12:16)
[2023-03-19] MEDS: ASPIRIN 81 MG PO SCH (12:16)
[2023-03-19] MEDS: PANTOPRAZOLE 40 MG/10 ML VIAL IV SCH (12:18)
[2023-03-19] MEDS: amLODIPine 5 MG TAB PO SCH (12:27)
--- NOTE | 2023-03-19 15:45 | P.PN ---
Subjective Progress Note Date: 03/19/23 Principal diagnosis: Acute mild pancreatitis This is a pleasant 73-year-old female who presented to the emergency department complaints of left-sided chest pain and rib pain. She recently underwent right total hip surgery on 03/12/2023 and an out side facility. She was admitted with a positive D-dimer and elevated lipase initially at 807. She had a CT angiogram of the chest that was negative for any acute cardiopulmonary disease. She denies any previous history of pancreatitis, denies any gallbladder disease, history of alcoholism however she does state that she was recently started on doxycycline and moxifloxacin since her surgery. She is unclear of how many days she has left. She currently states pain is somewhat improved, no nausea or vomiting. Repeat lipase today 576. 03/18/2023 Patient seen and examined today as a follow-up. Patient was resting comfortably but easily arousable. States she is still having pain in her left breast region and left ribs. They are tender to palpation and pain is reproducible. Denies any abdominal pain, nausea or vomiting. Repeat lipase down to 114. Patient has been able to tolerate clear liquid diet and is advanced to full liquid diet for lunch. 03/19/2023 Patient seen and examined today as a follow-up. Denies any abdominal pain. Still has pain in the left rib/musculoskeletal pain. No nausea or vomiting and is tolerating her diet. Objective - Vital Signs Vital signs: Vital Signs Temp 99 F 03/19/23 12:53 Pulse 69 03/19/23 12:53 Resp 16 03/19/23 12:53 BP 114/70 03/19/23 12:53 Pulse Ox 96 03/19/23 12:53 FiO2 Intake & Output 03/18/23 03/19/23 03/19/23 18:59 06:59 18:59 Intake Total 240 Output Total 600 700 820 Balance -600 -460 -820 Intake: Oral 240 Output: Urine 600 700 820 Other: Voiding Method Indwelling Catheter Indwelling Catheter Self-Catheterization # Voids 1 - Exam General appearance: The patient is alert, oriented, appears in no acute distress. HET: Head is normocephalic and atraumatic. Conjunctiva pink. Sclera anicteric. Neck: Supple without lymphadenopathy. Abdomen: Patient with tenderness along her left ribs and breastbone. Abdomen soft, nontender, nondistended with bowel sounds. No guarding or rigidity. Extremities: Normal skin color and turgor. No pedal edema Skin: No rashes, no jaundice Neurological: No focal deficits. Alert and oriented. - Labs CBC & Chem 7: 03/18/23 08:09 03/18/23 08:09 Assessment and Plan (1) Pancreatitis Narrative/Plan: 73-year-old female presented for chest pain with a positive D-dimer. She underwent on CTA of the chest that was negative for acute pulmonary embolism. She was noted to have mildly elevated lipase on admission just over 807 without any elevation in her liver enzymes. No prior history of pancreatitis, no history of alcoholism. Was recently started on 2 antibiotics doxycycline and moxifloxacin. Possible cause of pancreatitis is medication induced likely from antibiotics. Will obtain gallbladder ultrasound as well. Labs are not consistent with a cholestatic pattern not likely gallstone pancreatitis. Again unclear etiology of pancreatitis could be medication induced. Gallbladder ultrasound does report mildly prominent pancreatic duct with hyperechoic focus noted within the gallbladder gallstone is difficult to exclude. CBD not dilated measuring at 0.31 cm. Current Visit: Yes Status: Acute Code(s): K85.90 - ACUTE PANCREATITIS WITHOUT NECROSIS OR INFECTION, UNSP SNOMED Code(s): 15892239 (2) Musculoskeletal pain Current Visit: Yes Status: Acute Code(s): M79.18 - MYALGIA, OTHER SITE SNOMED Code(s): 408557120 Plan: 1. Continue symptomatic and supportive care 2. Diet as tolerated, recommend low-fat low fiber 3. Gallbladder ultrasound ordered and reviewed 4. Recommend holding or changing antibiotic therapy 5. Continue hydration, pain medication as needed 6. Mild pancreatitis resolving. Ultrasound reviewed, no CBD dilation. No further workup indicated. Unclear etiology of left rib pain. Thank you for this consultation, patient is cleared from gastroenterology for discharge. We will sign off at this time. Dr. Alejandra Pineda I agree with the dictator's note, [email or web address] as a scribe by Michelle Stephens.
[2023-03-19 15:47] VITALS: BP 114/70; PULSE 69; RESP 16; TEMP 99
== END 2023-03-19 16:30 | DRG 439 ==
LOC: EC 22:55 → 5NMEDONC 03-17 02:28
PROVIDERS: ADMIT Internal Medicine; ATTEND Internal Medicine
DX: K85.90 Acute pancreatitis without necrosis or infection, unspecified (principal); L03.115 Cellulitis of right lower limb; N17.9 Acute kidney failure, unspecified; D64.9 Anemia, unspecified; E83.42 Hypomagnesemia; I10 Essential (primary) hypertension; E11.22 Type 2 diabetes mellitus with diabetic chronic kidney disease; I12.9 Hypertensive chronic kidney disease with stage 1 through stage 4 chronic kidney disease, or unspecified chronic kidney disease; J44.9 Chronic obstructive pulmonary disease, unspecified; F17.210 Nicotine dependence, cigarettes, uncomplicated; F32.A Depression, unspecified; R07.89 Other chest pain; I44.7 Left bundle-branch block, unspecified; N18.9 Chronic kidney disease, unspecified; N64.4 Mastodynia; Z79.899 Other long term (current) drug therapy; Z79.82 Long term (current) use of aspirin; Z82.49 Family history of ischemic heart disease and other diseases of the circulatory system; Z85.819 Personal history of malignant neoplasm of unspecified site of lip, oral cavity, and pharynx; Z88.0 Allergy status to penicillin; Z90.710 Acquired absence of both cervix and uterus; Z96.641 Presence of right artificial hip joint; Z88.2 Allergy status to sulfonamides; Z86.14 Personal history of Methicillin resistant Staphylococcus aureus infection
CPT/HCPCS: 36415; 71045; 71275; 76705; 80048; 80053; 80076; 83690; 83735; 83880; 84484; 85025; 85027; 85379; 85610; 85730; 93005; 94640; 94760; 96361; 96365; 96366; 96372; 96375; 96376; 99285